=== PATIENT | female | born 1950 | race Caucasian/White ===

== ENCOUNTER 2019-08-19 14:56 | Inpatient (IN) | payer MEDICARE, OTHER ==
[~2019-08-19] VITALS: Ht 167.6 cm; Wt 107.0 kg
[~2019-08-19 14:56] MED LIST: CARISOPRODOL350 MG PO; DICLOFENAC SODI75 MG PO; GABAPENTIN100 MG PO; LOVASTATIN20 MG PO; MORPHINE SULFAT15 M1 PO; NORCO 10-325 T1 EACH PO; SOMA250 MG PO; TRIAMTERENE-HC1 EAC1 PO
--- OUTSIDE RECORDS SUMMARY | 2019-08-19 15:00 | XMS REPORT | Clinical Summary ---
Author Author MICHELE [facility] Address Unknown Phone Unavailable Care Team Providers Care Plug Making Operator Name Role Phone Sharpless PCP Unavailable Allergies No Known Allergies Medications End Date Status Medication Sig Dispensed Refills Start Date Active albuterol (PROVENTIL) 2.5 Take 2.5 mg 0 mg /3 mL (0.083 %) by nebulizer solution nebulization every 6 (six) hours as needed for Wheezing. Active albuterol HFA (VENTOLIN Inhale 1 puff 0 HFA) 90 mcg/actuation by mouth via inhaler inhaler every 6 (six) hours as needed for Wheezing. Active gabapentin (NEURONTIN) Take 300 mg 0 300 MG capsule by mouth 3 (three) times daily. Active lovastatin (MEVACOR) 20 Take 20 mg by 0 MG tablet mouth nightly. Active triamterene-hydrochloroth Take 1 tablet 0 iazide (MAXZIDE) 75-50 mg by mouth per tablet daily. Active TiZANidine (ZANAFLEX) 4 Take 4 mg by 0 MG capsule mouth 3 (three) times daily. Active bisacodyl (DULCOLAX) 5 mg Take 5 mg by 0 EC tablet mouth 2 (two) times daily. Active Problems Problem Noted Date Arthritis of knee 02/06/2016 Status post right knee replacement 02/06/2016 Immunizations Name Dates Previously Given Next Due Influenza High Dose 02/08/2016 Preservative Free IM Social History Date Tobacco Use Types Packs/Day Years Used Quit: 02/05/2008 Former Smoker 0.25 7 Smokeless Tobacco: Never Used Alcohol Use Drinks/Week oz/Week Comments No Sex Assigned at Date Recorded Not on file Industry Job Start Date Occupation Not on file Not on file Not on file Travel End Travel History Travel Start No recent travel history available. Last Filed Vital Signs Not on file Plan of Treatment Not on file Implants Device Identifier Shelf Expiration Date Model / Serial / L ot Implanted Type Area Manufactur er 06/11/2018 6191-1-001 / / [id number] [id number] Bone Smplx Pro Full 40 Cement/Patric Right: Knee MARYCRUZ:ST 6191-1-010 - [id number] ler/Adhesi ROSALIE Implanted: Qty: 2 on 02/06/2016 by Marcella Galo MD 06/07/2020 5515-F-402 / / [id number] Comp Triathlon Ps Fem #4 5515-F-402 Joints Right: Kne e MARYCRUZ:ST - [id number] ROSALIE Implanted: Qty: 1 on 02/06/2016 by Marcella Leiva MD 08/19/2020 5521-[id number] / / VHLIB Baseplt Tri Ts 3 5521-B-300 - Joints Right: Knee MARYCRUZ:ST [id number] ROSALIE Implanted: Qty: 1 on 02/06/2016 by Marcella Leiva MD 08/14/2020 5551-G-320 / / PLWX Patella Tri Asymmetric [id number] Joints Right: Knee MARYCRUZ:ST 5551-G-320 - [id number] ROSALIE Implanted: Qty: 1 on 02/06/2016 by Marcella Leiva MD 01/02/2020 [id number]-309 / / [id number] Insrt Tib #3 9mm 5532-G-309 - Joints Right: Knee MARYCRUZ:ST [id number] ROSALIE Implanted: Qty: 1 on 02/06/2016 by Marcella Leiva MD Results Not on fileafter 08/18/2018 Insurance Payer Benefit Subscriber ID Type Phone Address Plan / Group [facility] x[facility]xx MEDICARE ADV [id number] Advance Directives For more information, please contact: [place] [phone] [facility] [place] [address] Date Inactivated Comments Code Status Date Activated 02/09/2016 2:19 PM Full Code 02/06/2016 6:13 AM This code status was determined by: Patient
[2019-08-19] MEDS ORDERED: SODIUM CHLORIDE 0.9% 1000ML 1,000 ML IV STA (15:14)
[2019-08-19] MEDS ORDERED: ONDANSETRON HCL INJ 2MG/ML 2ML 2 MG/ML VIAL IV STA (15:14)
[2019-08-19] MEDS ORDERED: MORPHINE SULFATE 2 MG/ML SYR 1ML IV STA (15:14)
[2019-08-19] MEDS ORDERED: DIATRIZOATE MEGL/DIATRIZOA SOD 30 ML BTL PO ONE (15:30)
[2019-08-19 16:06] LABS: BASOPHILS # (AUTO) 0.1 (0.0-0.1); BASOPHILS % 1.3 % (0.0-1.0); EOSINOPHILS # (AUTO) 0.3 (0.0-0.4); EOSINOPHILS % 3.5 % (0.0-6.0); HEMATOCRIT 44.7 % (34.2-44.1); HEMOGLOBIN 14.4 g/dL (12.0-16.0); LYMPHOCYTES # (AUTO) 2.6 (1.0-3.2); LYMPHOCYTES % 28.9 % (18.0-39.1); MEAN CORPUSCULAR HEMOGLOBIN 27.3 pg (28-32); MEAN CORPUSCULAR HGB CONC 32.2 g/dL (31-35); MEAN CORPUSCULAR VOLUME 84.8 fL (81-99); MONOCYTES # (AUTO) 0.8 (0.2-0.8); MONOCYTES % 8.4 % (4.4-11.3); NEUTROPHILS # (AUTO) 5.3 (2.1-6.9); NEUTROPHILS % 57.7 % (38.7-80.0); PLATELET COUNT 368 x10e3/uL (140-360); RED BLOOD COUNT 5.27 x10e6/uL (3.6-5.1); RED CELL DISTRIBUTION WIDTH 14.6 % (11.7-14.4)
[2019-08-19 16:16] LABS: INR 0.88; PARTIAL THROMBOPLASTIN TIME 27.5 seconds (23.8-35.5); PROTHROMBIN TIME 12.4 seconds (11.9-14.5)
[2019-08-19 16:24] LABS: ALANINE AMINOTRANSFERASE 13 IU/L (0-55); ALBUMIN 3.8 g/dL (3.5-5.0); ALKALINE PHOSPHATASE 64 IU/L (40-150); AMYLASE 52 U/L (25-125); BLOOD UREA NITROGEN 7 mg/dL (7-26); BUN/CREATININE RATIO 9 (6-25); CALCIUM 10.7 mg/dL (8.4-10.2); CARBON DIOXIDE 30 mmol/L (22-29); CHLORIDE 92 mmol/L (98-107); CREATINE KINASE 68 IU/L (29-168); CREATININE, SERUM 0.75 mg/dL (0.57-1.11); EST GLOMERULAR FILTRATION RATE > 60 ML/MIN (60-); GLUCOSE 96 mg/dL (74-118); LIPASE 5 U/L (8-78); SODIUM 135 mmol/L (136-145)
--- NOTE | 2019-08-19 17:28 | Diagnostic Imaging Report ---
CT Abdomen And Pelvis with Intravenous Contrast INDICATION: Low back and abdominal pain for a week. History of bowel obstruction ^abd pain r/o sbo TECHNIQUE: Thin collimation axial images obtained from the diaphragm to the level of the pubic symphysis following the uneventful administration of 100 cc of low osmolar, nonionic intravenous contrast. Dose reduction techniques used: Automated exposure control, adjustment of the mAs and/or kVp according to patient size, standardized low-dose protocol, and/or iterative reconstruction technique. RADIATION DOSE: Total DLP: 920.43 mGy*cm Estimated effective dose: (DLP x 0.015 x size factor) mSv CTDIvol has been reviewed. It is below the limits set by the Radiation Protocol Committee (RPC). COMPARISON: None. ABDOMEN FINDINGS: Lung Bases: Mild eventration of the right diaphragm with overlying subsegmental atelectasis. Heavy calcifications of the LAD coronary artery. Liver: Normal attenuation. No evidence for mass. Gallbladder: Absent. No biliary ductal dilatation. Pancreas: Diffuse fatty atrophy without mass or ductal dilatation. Spleen: Normal in size. No evidence of mass. Adrenal Glands: No evidence for mass. Kidneys: Right: Excreted contrast in the collecting system. No hydronephrosis. No soft tissue mass. Left: Excreted contrast in the collecting system. No hydronephrosis. No soft tissue mass. Lymph Nodes: No enlarged abdominal or periaortic lymph nodes. Aorta: Normal in diameter with scattered calcifications PELVIS FINDINGS: Bowel: Stomach: Postoperative changes of the stomach. No gastric dilatation. Small Bowel: Small periampullary duodenal diverticulum. Diverticulum in the third portion of the duodenum measures 3 cm. Enteric contrast throughout the small bowel. No mural thickening or dilatation Large Bowel: There is stool mixed with barium in the cecal base. There is circumferential mural thickening of the proximal ascending colon at the ileocecal valve. The adjacent vasculature is mildly engorged. Only a small amount of enteric contrast reaches the hepatic flexure of the colon. The transverse colon and descending colon are collapsed. Appendix: Not visualized. Bladder: Contains a small amount of excreted contrast and is grossly normal in appearance. The uterus is present and atrophic. No adnexal mass. Peritoneum/retroperitoneum: No free fluid or fluid collection. Lymph nodes: Scattered subcentimeter right lower quadrant lymph nodes. Bones: Degenerative changes of the spine most severe at L3-4. Grade 1 retrolisthesis of L3 on L4 without pars defects. Mild degenerative changes of L5-S1. No lytic or blastic lesions. Soft tissues: Unremarkable.. IMPRESSION: 1. Circumferential mural thickening at the ileocecal valve concerning for underlying neoplasm. Recommend further characterization with colonoscopy. This mural thickening results in tract forms stool in the cecal base inferior to the ileocecal valve. 2. Nonspecific subcentimeter right lower quadrant mesenteric lymph nodes. No evidence of intrahepatic mass. 3. No evidence of small bowel obstruction. 4. Postoperative changes of the stomach. Cholecystectomy. Signed by: Dr. Jonnathan Gonzalez MD on 08/19/2019 5:25 PM
[2019-08-19] MEDS ORDERED: POTASSIUM CHLORIDE 20 MEQ TAB CR PO STA (17:38)
[2019-08-19] MEDS: ONDANSETRON HCL INJ 2MG/ML 2ML 2 MG/ML VIAL IV PRN ×2 (17:45→21:35)
[2019-08-19] MEDS: MORPHINE SULFATE INJ 4 MG/ML INJ 1ML IV PRN ×2 (17:45→21:35)
[2019-08-19 17:55] LABS: CLARITY,URINE CLEAR (CLEAR); COLOR,URINE YELLOW (YELLOW); LEUKOCYTE ESTERASE ,URINE NEGATIVE (NEGATIVE); NITRITE,URINE NEGATIVE (NEGATIVE)
[2019-08-19 17:56] LABS: BILIRUBIN,URINE NEGATIVE (NEGATIVE); KETONES,URINE NEGATIVE (NEGATIVE); PROTEIN,URINE DIPSTICK NEGATIVE (NEGATIVE); URINE UROBILINOGEN 0.2 mg/dL (0.2 - 1)
[2019-08-19 18:04] LABS: BACTERIA,URINE RARE /HPF; EPITHELIAL CELLS,URINE FEW /LPF
--- NOTE | 2019-08-19 18:57 | NUR ---
report given to Phil SENA
[2019-08-19] MEDS ORDERED: AMERGE2.5 MG PO (19:33)
[2019-08-19] MEDS ORDERED: GABAPENTIN300 MG PO (19:33)
[2019-08-19] MEDS ORDERED: TRIAMTERENE/HCTZ PO (19:33)
[2019-08-19] MEDS ORDERED: TIZANIDINE HCL4 M1 PO (19:33)
[2019-08-19] MEDS ORDERED: DULOXETINE HCL60 MG PO (19:33)
[2019-08-19] MEDS ORDERED: LOVASTATIN20 MG PO (19:33)
[2019-08-19] MEDS ORDERED: IOPAMIDOL 370 MG/ML 200 ML INFUS..BTL INJ ONE (22:29)
[2019-08-19] MEDS ORDERED: SODIUM CHLORIDE 0.9% 50ML 50 ML ONE (22:29)
--- NOTE | 2019-08-19 23:57 | NUR ---
RECEIVED PATIENT FROM THE ER PER STRETCHER, POSITIONED IN BED, CALL LIGHT IN REACH. WILL CONTINUE TO MONITOR. ASSESSMENT DONE.
[2019-08-20] VITALS (8 sets, daily range): BP systolic 119–143; BP diastolic 61–78
[2019-08-20] MEDS ORDERED: BISACODYL 5 MG TAB EC PO ONE ×3 (01:45→06:10)
[2019-08-20] MEDS: ONDANSETRON HCL INJ 2MG/ML 2ML 2 MG/ML VIAL IV PRN ×4 (02:52→21:11)
[2019-08-20] MEDS: MORPHINE SULFATE INJ 4 MG/ML INJ 1ML IV PRN ×4 (02:52→21:11)
[2019-08-20] MEDS ORDERED: CITRATE OF MAGNESIA 300ML BOTTLE PO ONE (05:00)
[2019-08-20 06:08] LABS: BASOPHILS # (AUTO) 0.1 (0.0-0.1); BASOPHILS % 1.3 % (0.0-1.0); EOSINOPHILS # (AUTO) 0.4 (0.0-0.4); EOSINOPHILS % 3.8 % (0.0-6.0); HEMATOCRIT 46.8 % (34.2-44.1); HEMOGLOBIN 14.7 g/dL (12.0-16.0); LYMPHOCYTES # (AUTO) 4.1 (1.0-3.2); LYMPHOCYTES % 39.5 % (18.0-39.1); MEAN CORPUSCULAR HEMOGLOBIN 27.3 pg (28-32); MEAN CORPUSCULAR HGB CONC 31.4 g/dL (31-35); MONOCYTES # (AUTO) 0.8 (0.2-0.8); MONOCYTES % 7.8 % (4.4-11.3); NEUTROPHILS # (AUTO) 4.9 (2.1-6.9); NEUTROPHILS % 47.4 % (38.7-80.0); PLATELET COUNT 351 x10e3/uL (140-360); RED BLOOD COUNT 5.38 x10e6/uL (3.6-5.1); RED CELL DISTRIBUTION WIDTH 15.2 % (11.7-14.4)
--- NOTE | 2019-08-20 06:14 | NUR ---
DR. CAMRYN CORNEJO MADE ROUNDS AND NEW ORDERS NOTED, PATIENT USING THE BEDSIDE COMMODE AND HAVING BOWEL MOVEMENTS, MOVEMENTS ARE GREENISH LIQUID. WILL CONTINUE TO MONITOR.
[2019-08-20 06:33] LABS: ALANINE AMINOTRANSFERASE 14 IU/L (0-55); ALBUMIN 3.8 g/dL (3.5-5.0); ALKALINE PHOSPHATASE 67 IU/L (40-150); ANION GAP 16.4 mmol/L (8-16); BLOOD UREA NITROGEN 6 mg/dL (7-26); BUN/CREATININE RATIO 8 (6-25); CALCIUM 10.4 mg/dL (8.4-10.2); CARBON DIOXIDE 18 mmol/L (22-29); CHLORIDE 100 mmol/L (98-107); CREATININE, SERUM 0.74 mg/dL (0.57-1.11); EST GLOMERULAR FILTRATION RATE > 60 ML/MIN (60-); GLUCOSE 120 mg/dL (74-118); POTASSIUM 3.4 mmol/L (3.5-5.1); SODIUM 131 mmol/L (136-145)
[2019-08-20] MEDS ORDERED: CITRATE OF MAGNESIA 300ML BOTTLE PO SCH (07:00)
--- NOTE | 2019-08-20 07:33 | NUR ---
REPORT GIVEN TO AM NURSE, PATIENT CONTINUE HAVING GREENISH LOOSE STOOLS, INFORMED NURSE OF PATIENTS FAMILY HISTORY ASSESSMENT NEED TO BE COMPLETED. CALL LIGHT REMAIN IN PATIENTS REACH AND INFORMED TO BE CAREFUL WHEN AMBULATING IN THE ROOM.
[2019-08-20] MEDS ORDERED: FAMOTIDINE 20 MG/2 ML VIAL IV SCH (11:45)
[2019-08-20] MEDS ORDERED: POTASSIUM CHLORIDE 10MEQ/100ML 300 ML IV ONE (11:45)
[2019-08-20] MEDS: DEXTROSE 5%/0.9% SOD CHL 1,000 ML IV SCH (12:03)
[2019-08-20] MEDS ORDERED: MIDAZOLAM HCL 2 MG/2 ML VIAL ONE (13:59)
--- NOTE | 2019-08-20 16:11 | NUR ---
Unable to do 1600 IV/Pain/Fall reviews due to patient being in surgery.
--- NOTE | 2019-08-20 18:29 | NUR ---
Patient went to a colonscopy and had many polyps removed. Dr. Castelan stated that patient would need a small bowel series next but would be done outpatient. Patient is alert and oriented and restarted on her IV potassium and fluids. Patient has no other issues or complaints at this time.
--- NOTE | 2019-08-20 19:24 | Operative Report ---
DATE OF PROCEDURE: 08/20/2019 SURGEON: Julio Valenzuela MD PROCEDURE: Colonoscopy with polypectomy and biopsies. INDICATIONS FOR PROCEDURE: Abdominal pain, nausea, vomiting, and abnormal CAT scan. MEDICATIONS: The patient was done under MAC, please see anesthesiologist's note. PROCEDURE IN DETAIL: With the patient in the left lateral decubitus position, a flexible fiberoptic Olympus colonoscope was inserted into the rectum with ease and advanced all the way to the cecum. The ileocecal valve appeared to be within normal limits. There was a ? diverticulum ? postoperative change noted in the cecum. The ileocecal valve was intubated and the scope was advanced into the terminal ileum. Biopsies were obtained. The scope was then withdrawn back into the colon. Of note, the colon was excessively spastic and irritable and suboptimally visualized. Whatever was visualized the mucosa overlying the ascending colon appeared to be within normal limits. Approximately, 6 mm sessile polyp was removed from the transverse colon per snare electrocautery. Diverticular disease was noted in the distal descending and the sigmoid colon. One polyp was hot biopsied from the sigmoid colon. The scope was then retroflexed into the distal rectum and small internal hemorrhoids were noted, none of which was actively bleeding. The scope was then straightened out, it was subsequently withdrawn, and the patient tolerated the procedure well. IMPRESSION: 1. ? Postoperative changes cecum. 2. Transverse colon polyp, hot snared. 3. Diverticulosis. 4. Sigmoid colon polyp, hot biopsied. 5. Internal hemorrhoids, none actively bleeding. PLAN: Follow up histology. The patient will need a small bowel series. The patient might benefit from a followup colonoscopy in 3 years. Julio Valenzuela MD [facility]/MOD[facility] /[id number] cc: Mikey Gonzalez MD
--- NOTE | 2019-08-20 19:30 | NUR ---
Received patient from day nurse, patient is alert and oriented x 3. patient is on room air. safety and fall precautions maintained as per hospital protocol: bed in lowest position and locked, needed items beside bed, and call foley placed close to patient, patient is currently stable, will continue to monitor.
[2019-08-21] VITALS (7 sets, daily range): BP systolic 125–166; BP diastolic 63–78
[2019-08-21] MEDS: DEXTROSE 5%/0.9% SOD CHL 1,000 ML IV SCH ×2 (05:38→08:09)
[2019-08-21] MEDS: ONDANSETRON HCL INJ 2MG/ML 2ML 2 MG/ML VIAL IV PRN ×5 (05:56→22:27)
[2019-08-21] MEDS: MORPHINE SULFATE INJ 4 MG/ML INJ 1ML IV PRN ×5 (05:56→22:27)
[2019-08-21] MEDS ORDERED: TIZANIDINE HCL 4 MG TAB PO PRN (13:15)
[2019-08-21] MEDS: GABAPENTIN 300 MG CAP PO SCH ×2 (14:33→21:21)
--- NOTE | 2019-08-21 19:00 | NUR ---
RECEIVED PATIENT IN BEDSIDE SHIFT REPORT. PATIENT RESTING IN BED AT THIS TIME. PAIN 09/21, RECENTLY RECEIVED IV PAIN MEDS. NO IV ACCESS AT THIS TIME. WILL ATTEMPT. NO S&S OF DISTRESS NOTED. BED LOCKED IN LOWEST POSITION, SIDE RAILS UPX2, CALL LIGHT IN REACH.
[2019-08-21] MEDS: DULOXETINE HCL 30 MG DELAYED RELEASE PO SCH (21:21)
[2019-08-21] MEDS: SIMVASTATIN 20 MG TAB PO SCH (21:21)
--- NOTE | 2019-08-21 21:57 | NUR ---
NEW IV OBTAINED TO L MUSTAPHA, 22G. RECONNECTED D5NS @ 75ML/HR.
[2019-08-22] VITALS (7 sets, daily range): BP systolic 134–160; BP diastolic 62–77
[2019-08-22] MEDS: MORPHINE SULFATE INJ 4 MG/ML INJ 1ML IV PRN ×5 (02:30→19:25)
[2019-08-22] MEDS: ONDANSETRON HCL INJ 2MG/ML 2ML 2 MG/ML VIAL IV PRN ×5 (02:30→19:25)
[2019-08-22] MEDS: PANTOPRAZOLE 40 MG 10ML VIAL IV SCH ×2 (02:34→14:09)
[2019-08-22] MEDS: DEXTROSE 5%/0.9% SOD CHL 1,000 ML IV SCH ×2 (02:34→07:30)
[2019-08-22 06:59] LABS: ANION GAP 11.1 mmol/L (8-16); BLOOD UREA NITROGEN < 5 mg/dL (7-26); CALCIUM 8.8 mg/dL (8.4-10.2); CARBON DIOXIDE 28 mmol/L (22-29); CHLORIDE 102 mmol/L (98-107); CREATININE, SERUM 0.63 mg/dL (0.57-1.11); EST GLOMERULAR FILTRATION RATE > 60 ML/MIN (60-); GLUCOSE 99 mg/dL (74-118); MAGNESIUM 1.8 MG/DL (1.3-2.1); POTASSIUM 3.1 mmol/L (3.5-5.1); SODIUM 138 mmol/L (136-145)
--- NOTE | 2019-08-22 07:00 | NUR ---
Received report from 7p shift that Dr. Valenzuela saw patient and is advancing her diet from full liquid to GI soft. Patient had a new order for Protonix IV last night and received it. After report patient was assessed and all vitals were WNL. Patient's left hang 22g IV was patent and no redness. Patient's labs were drawn and this technical publications writer noted that the patient's potassium was 3.1 [address] 3.4. [address] Gonzalez was called and he ordered a one time dose of Potassium 40 mEqs. It was given as ordered. Patient has no other issues or complaints at this time. Addendum: 08/22/19 at 0936 by Lara Vasquez RN Dr. Gonzalez ordered for the D5NS to be discontinued. Dr. Gonzalez also ordered for more potassium to be given at 1230. Will follow through.
[2019-08-22 07:02] LABS: BUN/CREATININE RATIO 8 (6-25)
[2019-08-22] MEDS ORDERED: POTASSIUM CHLORIDE 20 MEQ TAB CR PO STA (07:14)
[2019-08-22] MEDS: GABAPENTIN 300 MG CAP PO SCH ×3 (07:30→21:05)
[2019-08-22] MEDS: TRIAMTERENE/HCTZ 37.5-25 MG TAB PO SCH (07:30)
[2019-08-22] MEDS ORDERED: POTASSIUM CHLORIDE 20 MEQ TAB CR PO ONE (12:30)
[2019-08-22] MEDS ORDERED: FUROSEMIDE INJ 10 MG/ML 2 ML VIAL IV ONE (13:00)
[2019-08-22] MEDS: ALBUTEROL SULF 0.083% NEB SOLN 3 ML NEB NEB PRN ×2 (18:20→23:01)
--- NOTE | 2019-08-22 19:00 | NUR ---
RECEIVED PATIENT IN BEDSIDE SHIFT REPORT. PATIENT RESTING IN BED. PAIN 10/21, WILL MEDICATE. NO S&S OF DISTRESS NOTED. L HAND 22G IV ASYMPTOMATIC, INTACT, AND PATENT. BED LOCKED IN LOWEST POSITION, SIDE RAILS UPX2, CALL LIGHT IN REACH.
[2019-08-22] MEDS ORDERED: TEMAZEPAM 7.5 MG CAP PO ONE (21:00)
[2019-08-22] MEDS: DULOXETINE HCL 30 MG DELAYED RELEASE PO SCH (21:04)
[2019-08-22] MEDS: SIMVASTATIN 20 MG TAB PO SCH (21:05)
[2019-08-23] VITALS (7 sets, daily range): BP systolic 125–146; BP diastolic 60–74
[2019-08-23] MEDS: ONDANSETRON HCL INJ 2MG/ML 2ML 2 MG/ML VIAL IV PRN ×4 (02:45→21:16)
[2019-08-23] MEDS: MORPHINE SULFATE INJ 4 MG/ML INJ 1ML IV PRN ×5 (02:45→21:15)
[2019-08-23] MEDS: PANTOPRAZOLE 40 MG 10ML VIAL IV SCH ×2 (02:49→14:00)
--- NOTE | 2019-08-23 07:20 | NUR ---
PATIENT IS AWAKE, ALERT, AND IN STABLE CONDITION WITH NO S/S OF RESPIRATORY DISTRESS. PATIENT C/O BACK PAIN 10/21. PATIENT IS CURRENTLY NPO. CALL LIGHT IS WITHIN REACH, PATIENT INSTRUCTED TO CALL FOR ASSISTANCE NEEDED.
[2019-08-23] MEDS: ALBUTEROL SULF 0.083% NEB SOLN 3 ML NEB NEB PRN ×3 (07:55→23:35)
[2019-08-23] MEDS: GABAPENTIN 300 MG CAP PO SCH ×3 (09:00→21:17)
--- NOTE | 2019-08-23 13:55 | Diagnostic Imaging Report ---
EXAM: SMALL BOWEL SERIES DATE: 08/23/2019 10:30 AM INDICATION: Ileocecal abnormality COMPARISON: CT abdomen/pelvis from 08/19/2019 Fluoroscopy Time: 2.5 min. Reference Air Kerma (Ka, r): 73.9 mGy. TECHNIQUE/FINDINGS: Screen Printing Equipment Setter images demonstrate moderate volume of retained fecal matter which limits evaluation. Contrast material was provided orally without complication. Sequential overhead images were obtained of the abdomen with spot fluoroscopic evaluation of the terminal ileum. Contrast material opacifies entire small bowel. Small bowel transit time is within normal limits with contrast material reaching the colon at 1 hour, 10 minutes. Small bowel mucosa is unremarkable without evidence for filling defect, radiographically evident mucosal abnormality, stricture, obstruction, or extravasation. IMPRESSION: Unremarkable small bowel follow-through. The abnormality noted at the ileocecal valve on the prior CT examination is not appreciated radiographically on this small bowel follow-through examination. Signed by: Dr. Mike Doherty MD on 08/23/2019 1:52 PM
[2019-08-23] MEDS: TRIAMTERENE/HCTZ 37.5-25 MG TAB PO SCH (16:25)
--- NOTE | 2019-08-23 17:19 | NUR ---
PT UP IN BED NO DISTRESS NOTED,PAIN LEVEL 3
--- NOTE | 2019-08-23 19:51 | NUR ---
RECEIVED REPORT FROM 7AM NURSE, PATIENT RESTING IN BED, NO DISTRESS NOTED. CALL LIGHT REMAIN IN REACH.
[2019-08-23] MEDS: DULOXETINE HCL 30 MG DELAYED RELEASE PO SCH (21:17)
[2019-08-23] MEDS: SIMVASTATIN 20 MG TAB PO SCH (21:17)
[2019-08-23] MEDS: HYDROCODONE/APAP 10MG-325MG TAB PO PRN (23:00)
[2019-08-23] MEDS ORDERED: POTASSIUM CHLORIDE 20 MEQ TAB CR PO STA (23:37)
[2019-08-24] VITALS (8 sets, daily range): BP systolic 129–160; BP diastolic 64–95
[2019-08-24] MEDS: PANTOPRAZOLE 40 MG 10ML VIAL IV SCH ×2 (02:00→14:00)
[2019-08-24] MEDS: ONDANSETRON HCL INJ 2MG/ML 2ML 2 MG/ML VIAL IV PRN ×4 (04:10→22:45)
[2019-08-24] MEDS: MORPHINE SULFATE INJ 4 MG/ML INJ 1ML IV PRN ×5 (04:10→22:45)
[2019-08-24 06:58] LABS: ANION GAP 14.5 mmol/L (8-16); BLOOD UREA NITROGEN < 5 mg/dL (7-26); CALCIUM 9.6 mg/dL (8.4-10.2); CARBON DIOXIDE 30 mmol/L (22-29); CHLORIDE 94 mmol/L (98-107); CREATININE, SERUM 0.76 mg/dL (0.57-1.11); EST GLOMERULAR FILTRATION RATE > 60 ML/MIN (60-); GLUCOSE 103 mg/dL (74-118); MAGNESIUM 1.7 MG/DL (1.3-2.1); POTASSIUM 3.5 mmol/L (3.5-5.1); SODIUM 135 mmol/L (136-145)
[2019-08-24 06:59] LABS: BUN/CREATININE RATIO 7 (6-25)
[2019-08-24] MEDS: ALBUTEROL SULF 0.083% NEB SOLN 3 ML NEB NEB PRN ×2 (07:50→13:20)
[2019-08-24] MEDS: TRIAMTERENE/HCTZ 37.5-25 MG TAB PO SCH (08:33)
[2019-08-24] MEDS: GABAPENTIN 300 MG CAP PO SCH ×3 (08:33→20:50)
--- NOTE | 2019-08-24 09:35 | NUR ---
Pt. expressed no spiritual or emotional concerns at this time. Provided hospitality and information n how to reach fabric worker supervisor, if needed. No need to follow at this time. LEDA ASTORGA [facility] Department O: [phone]
--- NOTE | 2019-08-24 14:00 | NUR ---
dr mcdaniel here informed of audible wheezing,orders written.
[2019-08-24] MEDS: HYDROCODONE/APAP 10MG-325MG TAB PO PRN ×2 (14:28→20:50)
[2019-08-24] MEDS ORDERED: EPINEPHRINE 2.25% INH NEBU SOL 0.5 ML VIAL INH SCH (14:35)
--- NOTE | 2019-08-24 17:09 | NUR ---
pt up in bed no distess noted.pain level 3,
[2019-08-24] MEDS: SIMVASTATIN 20 MG TAB PO SCH (20:50)
[2019-08-24] MEDS: MAGNESIUM HYDROXIDE 30 ML UDC PO SCH (20:50)
[2019-08-24] MEDS: DULOXETINE HCL 30 MG DELAYED RELEASE PO SCH (20:50)
[2019-08-24] MEDS: TEMAZEPAM 15 MG CAP PO PRN (20:50)
--- NOTE | 2019-08-24 20:50 | NUR ---
PATIENT RESTING IN BED, NO SIGNS OF DISTRESS NOTED. NASAL CANNULA INTACT AND RUNNING AT 2 LITERS AND PATIENT AWAITING RESPIRATORY THERAPIST FOR BREATHING TREATMENT. PATIENT VOICES PAIN AT A LEVEL OF 7 AND WAS MEDICATED ORDERED. BED IS IN LOWEST POSITION, BOTH SIDE RAILS ARE UP, CALL LIGHT IS WITHIN EASY REACH, WILL CONTINUE TO MONITOR.
--- NOTE | 2019-08-24 21:45 | NUR ---
PATIENT VOICED THAT SHE IS BREATHING A LOT BETTER SINCE HER BREATHING TREATMENT OF EPINEPHRINE. CONTINUING TO MONITOR.
[2019-08-25] VITALS (8 sets, daily range): BP systolic 122–157; BP diastolic 56–86
[2019-08-25] MEDS: HYDROCODONE/APAP 10MG-325MG TAB PO PRN ×4 (02:37→21:34)
[2019-08-25] MEDS: PANTOPRAZOLE 40 MG 10ML VIAL IV SCH ×2 (02:37→14:15)
[2019-08-25] MEDS: ALBUTEROL SULF 0.083% NEB SOLN 3 ML NEB NEB PRN ×5 (02:40→20:00)
--- NOTE | 2019-08-25 07:00 | NUR ---
received bedside report. pt is oob ambulating to bathroom, no s/s of distress, c/o pain. call light within reach and safety measures in place, instructed pt to call RN for help
[2019-08-25] MEDS: ONDANSETRON HCL INJ 2MG/ML 2ML 2 MG/ML VIAL IV PRN ×5 (07:22→23:55)
[2019-08-25] MEDS: MORPHINE SULFATE INJ 4 MG/ML INJ 1ML IV PRN ×5 (07:22→23:55)
[2019-08-25] MEDS: TRIAMTERENE/HCTZ 37.5-25 MG TAB PO SCH (09:12)
[2019-08-25] MEDS: GABAPENTIN 300 MG CAP PO SCH ×3 (09:12→21:22)
--- NOTE | 2019-08-25 09:22 | Diagnostic Imaging Report ---
EXAMINATION: CHEST SINGLE (PORTABLE) INDICATION: Wheezing COMPARISON: None FINDINGS: LINES/TUBES:None LUNGS:The lungs are moderately inflated. No focal consolidation or pulmonary edema. PLEURA:No pleural effusion or pneumothorax. MEDIASTINUM:The cardiomediastinal silhouette appears normal in size and shape. Atherosclerotic calcifications of the thoracic aorta. BONES/SOFT TISSUES:No acute osseous injury. ABDOMEN:No free air under the diaphragm. Oral contrast in the left upper quadrant. IMPRESSION: No focal pneumonia or pulmonary edema. Signed by: Dianelys Graham MD on 08/25/2019 9:09 AM
--- NOTE | 2019-08-25 13:25 | NUR ---
Dr. Karina Amanda called and gave telephone orders for prophylactic abx. stated that surgery will be done on 08/26/2019 in am and he would get the consent at a later time when he talked with the patient.
[2019-08-25] MEDS ORDERED: ERYTHROMYCIN 500 MG TAB PO ONE ×3 (14:00→23:00)
[2019-08-25] MEDS ORDERED: NEOMYCIN SULFATE 500 MG TAB PO ONE ×3 (14:00→23:00)
[2019-08-25] MEDS ORDERED: EPINEPHRINE 2.25% INH NEBU SOL 0.5 ML VIAL INH STA (14:46)
[2019-08-25] MEDS: DOCUSATE SODIUM 100 MG CAP PO SCH (16:17)
--- NOTE | 2019-08-25 16:33 | NUR ---
Nutrition Screen Note RD Recommendation for Physician: - When feasible, ADAT to goal of GI Soft Plan of Care: RD following, monitoring for tolerance and adequacy Nutrition reason for involvement: LOS Primary Diagnose(s): intractable abdominal pain, ileo-cecal lesion PMH: no H&P in meditech Ht: 66 in Wt: 234.13 lb BMI: 37.8 kg/m2 IBW: [address] Assessment: (08/24) 69 YOM admitted for abdominal pain and ileo-cecal valve lesion reguiring polyp removal on 08/19. Pt seem today for LOS. Pt reports good appetite and po intake on full liquids and regular diet. Pt reports good appetite and intake TUBE COATER. Pt on CLD as of this am. Pt denies wt loss and reports she gained 30# 2/2 steroid shot over the past 6 months. Pt denies any N/V/C/D. Pt meal/food preferences obtain and recorded in [facility]. All questions and concerns addressed at time of visit. Chart reviewed. Labs and meds reviewed. Will continue to monitor. Current Diet: Clear liquids Malnutrition Evaluation (08/25/19) The patient does not meet criteria for a specified degree of malnutrition at this time. Will re-evaluate at follow-up as appropriate. Diet Education Needs Assessment: Diet education not indicated. Diet tolerance: tolerating po Nutrition Care Level: low Signed: Juanita Acuna RD, LD, [facility]
--- NOTE | 2019-08-25 19:30 | NUR ---
RECEIVED REPORT FROM PREVIOUS NURSE. CALL LIGHT WITHIN REACH. PATIENT IS IN BED.
[2019-08-25] MEDS: MAGNESIUM HYDROXIDE 30 ML UDC PO SCH (21:22)
[2019-08-25] MEDS: SIMVASTATIN 20 MG TAB PO SCH (21:22)
[2019-08-25] MEDS: DULOXETINE HCL 30 MG DELAYED RELEASE PO SCH (21:22)
[2019-08-25] MEDS: TEMAZEPAM 15 MG CAP PO PRN (21:26)
[2019-08-26] VITALS (9 sets, daily range): BP systolic 113–136; BP diastolic 58–78
--- NOTE | 2019-08-26 00:02 | Consultation ---
DATE OF CONSULTATION: 08/25/2019 Hospital Consultation HISTORY OF PRESENT ILLNESS: I was kindly asked to see this 69-year-old woman for evaluation of possible upper airway obstruction and stridor. The patient has no previous history of laryngeal or vocal abnormalities, but 2 days ago began developing inspiratory and expiratory "wheezing." She was felt to possibly have stridor. She was initially treated with racemic epi and responded well. At the time of examination, she reports being asymptomatic. She specifically denies hoarseness. REVIEW OF SYSTEMS: Otolaryngology review of systems is otherwise unremarkable. PHYSICAL EXAMINATION: HEENT: The right pinna is normal. The right external auditory canal has a moderate amount of cerumen. Tympanic membrane cannot be visualized. The left pinna was normal. Left external auditory canal had moderate amount of cerumen. The left tympanic membrane could not be well visualized. Intranasal examination showed a mild mid nasal septal deviation toward the right. There was minimal edema of the nasal mucosa. Oral cavity examination showed mild candidiasis on the dorsum of the tongue. There was symmetric elevation of the soft palate. She had no significant postnasal drainage. She had no palpable cervical adenopathy. On fiberoptic laryngoscopy, she had normal vocal cord motion. There were no masses. She had minimal edema and erythema of the posterior commissure of the larynx. There was no obstruction. The subglottis was well visualized. There was no evidence of subglottic abnormalities. There was no stridor or wheezing on examination. ASSESSMENT: No evidence of clinically significant laryngeal pathology to account for her symptoms. PLAN: 1. Cleared for surgery from Otolaryngology standpoint. 2. If symptoms persist, then she should be evaluated for possible vocal cord dysfunction. MD MAURICIO Fuller/MODL /[id number]
[2019-08-26] MEDS ORDERED: MAGNESIUM HYDROXIDE 30 ML UDC PO ONE (00:15)
[2019-08-26] MEDS ORDERED: POTASSIUM CHLORIDE 20 MEQ TAB CR PO STA (00:43)
[2019-08-26] MEDS: PANTOPRAZOLE 40 MG 10ML VIAL IV SCH ×2 (01:50→13:57)
[2019-08-26] MEDS: MORPHINE SULFATE INJ 4 MG/ML INJ 1ML IV PRN (05:16)
[2019-08-26] MEDS: ONDANSETRON HCL INJ 2MG/ML 2ML 2 MG/ML VIAL IV PRN ×3 (05:16→20:59)
[2019-08-26] MEDS: ALBUTEROL SULF 0.083% NEB SOLN 3 ML NEB NEB PRN (07:00)
--- NOTE | 2019-08-26 07:00 | NUR ---
received bedside report. pt is alert resting in bed, no s/s of distress. call light within reach and instructed pt to call RN for help. is at the bedside waiting for patient to go back to surgery
--- NOTE | 2019-08-26 07:19 | NUR ---
GAVE BEDSIDE SHIFT REPORT TO RUPERT TIWARI. CALL LIGHT WITHIN REACH. PATIENT IN BED. Addendum: 08/26/19 at 0719 by Caryn James RN AT THE BEDSIDE
--- NOTE | 2019-08-26 07:33 | NUR ---
pt off unit for surgical procedure
[2019-08-26] MEDS ORDERED: HYDROMORPHONE 1MG/1ML INJ ONE (07:51)
[2019-08-26] MEDS ORDERED: SUGAMMADEX SODIUM 200 MG/2 ML VIAL IV ONE (07:51)
[2019-08-26] MEDS: DOCUSATE SODIUM 100 MG CAP PO SCH (08:16)
[2019-08-26] MEDS: TRIAMTERENE/HCTZ 37.5-25 MG TAB PO SCH (08:16)
[2019-08-26] MEDS: GABAPENTIN 300 MG CAP PO SCH (08:16)
[2019-08-26] MEDS: SODIUM CHLORIDE 0.9% 250ML IRRIG IR SCH ×4 (10:30→22:42)
[2019-08-26] MEDS ORDERED: HYDRALAZINE HCL 20 MG/ML VIAL ONE (10:55)
[2019-08-26] MEDS ORDERED: FENTANYL CITRATE/PF 100MCG/2 ML INJ ONE ×2 (11:13→19:48)
[2019-08-26] MEDS ORDERED: ACETAMINOPHEN 1000 MG/100 ML IV PRN (12:00)
--- NOTE | 2019-08-26 12:17 | NUR ---
received patient back from surgery. pt is sleeping, no s/s of distress. left hand PIV is infiltrated, hand is edematous. disconnected iv fluids and will need to start new IV
[2019-08-26] MEDS: SODIUM CHLORIDE 0.9% 1000ML 1,000 ML IV SCH (13:57)
[2019-08-26] MEDS: CEFOXITIN 1GM/ D5W 50ML 50 ML IV SCH ×2 (13:57→21:00)
[2019-08-26] MEDS: HYDROMORPHONE 1MG/1ML INJ IV PRN ×3 (13:58→20:59)
--- NOTE | 2019-08-26 14:34 | Operative Report ---
DATE OF PROCEDURE: 08/26/2019 SURGEON: Arnoldo Amanda MD PREOPERATIVE DIAGNOSIS: Calcified cecal mass. POSTOPERATIVE DIAGNOSIS: Calcified cecal mass, benign by frozen section. OPERATION PERFORMED: Exploratory laparotomy and ileoascending colectomy. MALTED MILK MIXER: Haven NOEL. ANESTHESIA: General endotracheal. COMPLICATIONS: None. ESTIMATED BLOOD LOSS: 100 mL. DESCRIPTION OF PROCEDURE: With the patient lying in bed in the supine position under good general endotracheal anesthesia, the abdomen was prepped with Betadine solution and draped in the usual manner. A midline incision was made and was carried down through the subcutaneous tissue and through the midline fascia. The peritoneum was entered and the intra-abdominal cavity was explored. There were some adhesions of omentum to the anterior abdominal wall from the patient's previous surgeries. All this was cleared up. After this was done, examination immediately revealed a palpable mass at the base of the cecum. This was very hard almost like there was a rock in there. The patient had a previous appendectomy, initial impression was that perhaps this could be some kind of an inverted calcified mucocele, although obviously stool could do the same thing. We decided to go ahead and do a resection to be able to get the mass out. The right colon was then mobilized off the lateral gutter and brought medially. The terminal ileum was then divided with an application of the ERLIN-75 stapler. The mid ascending colon was then divided with an application of the ERLIN-75 stapler and the mesentery was then divided using the EnSeal device. The specimen was sent for frozen section, which came back as benign and what appeared to be some kind of a calcified fecal mass that had become entrapped in the base of the cecum. The anastomosis was then completed with another application of the ERLIN-75 stapler bringing the terminal ileum to the upper ascending colon and the remaining opening was closed with a TA-60 stapler. Gloves and instruments were changed. The anastomosis was then reinforced with 3-0 silk. The abdomen was then copiously irrigated and perfect hemostasis was ascertained. The mesenteric rent was closed with a running suture of 2-0 Vicryl and the abdomen was then closed in layers. The peritoneum was closed with a running suture of #1 Vicryl. The midline fascia was closed with a running suture of #1 PDS. Subcutaneous tissue was approximated with 2-0 Vicryl and the skin was closed with interrupted vertical mattress sutures of 2-0 nylon and clips. A dressing was applied. The sponge, lap, and needle count was correct. The patient tolerated the procedure well and returned to the recovery room in stable condition. MD SAL Brewer/KATHRYN /[id number] MTDShaniqua
[2019-08-26] MEDS ORDERED: CEFOXITIN SOD 1 GM VIAL ONE (18:35)
[2019-08-26] MEDS ORDERED: SUCCINYLCHOLINE CHLORIDE 20 MG/ML 10ML VIAL ONE (18:35)
[2019-08-26] MEDS ORDERED: ONDANSETRON HCL INJ 2MG/ML 2ML 2 MG/ML VIAL ONE (18:35)
[2019-08-26] MEDS ORDERED: LIDOCAINE HCL 2% LOCAL INJ 5 ML SDV VIAL INJ ONE (18:35)
[2019-08-26] MEDS ORDERED: ROCURONIUM BROMIDE 10 MG/ML 5ML VIAL IV ONE (18:35)
[2019-08-26] MEDS ORDERED: PHENYLEPHRINE HCL 1% 10 MG/ML VIAL ONE (18:35)
[2019-08-26] MEDS ORDERED: ACETAMINOPHEN 1000 MG/100 ML IV ONE (18:35)
[2019-08-26] MEDS ORDERED: DEXAMETHASONE SOD PHOS INJ 4 MG/ML VIAL ONE (18:35)
[2019-08-26] MEDS ORDERED: PROPOFOL IV EMULSION 10 MG/ML 20 ML VIAL ONE (18:35)
[2019-08-26] MEDS ORDERED: SEVOFLURANE INHAL SOLN 250 ML PEN BTL ONE (18:35)
[2019-08-26] MEDS ORDERED: KETOROLAC TROMETHAMINE 30 MG/ML VIAL ONE (18:35)
--- NOTE | 2019-08-26 19:29 | NUR ---
RECEIVED REPORT FROM PREVIOUS NURSE. CALL LIGHT WITHIN REACH. PATIENT IN BED. ROUNDING PERFORMED.
[2019-08-26] MEDS ORDERED: MIDAZOLAM HCL 2 MG/2 ML VIAL ONE (19:48)
[2019-08-27] VITALS (8 sets, daily range): BP systolic 131–137; BP diastolic 60–88
[2019-08-27] MEDS: HYDROMORPHONE 1MG/1ML INJ IV PRN ×8 (00:09→23:00)
[2019-08-27] MEDS: SODIUM CHLORIDE 0.9% 250ML IRRIG IR SCH ×5 (02:20→17:30)
[2019-08-27] MEDS: SODIUM CHLORIDE 0.9% 1000ML 1,000 ML IV SCH (02:20)
[2019-08-27] MEDS: PANTOPRAZOLE 40 MG 10ML VIAL IV SCH ×2 (02:20→14:50)
[2019-08-27] MEDS: ONDANSETRON HCL INJ 2MG/ML 2ML 2 MG/ML VIAL IV PRN ×4 (03:46→23:00)
[2019-08-27 06:07] LABS: BASOPHILS % 0.1 % (0.0-1.0); HEMATOCRIT 37.3 % (34.2-44.1); HEMOGLOBIN 11.9 g/dL (12.0-16.0); LYMPHOCYTES # (AUTO) 1.2 (1.0-3.2); LYMPHOCYTES % 8.1 % (18.0-39.1); MEAN CORPUSCULAR HEMOGLOBIN 27.4 pg (28-32); MEAN CORPUSCULAR HGB CONC 31.9 g/dL (31-35); MEAN CORPUSCULAR VOLUME 85.9 fL (81-99); MONOCYTES # (AUTO) 1.1 (0.2-0.8); MONOCYTES % 7.2 % (4.4-11.3); NEUTROPHILS # (AUTO) 12.6 (2.1-6.9); NEUTROPHILS % 84.1 % (38.7-80.0); PLATELET COUNT 354 x10e3/uL (140-360); RED BLOOD COUNT 4.34 x10e6/uL (3.6-5.1); RED CELL DISTRIBUTION WIDTH 15.2 % (11.7-14.4)
[2019-08-27 06:31] LABS: ANION GAP 12.7 mmol/L (8-16); BLOOD UREA NITROGEN 9 mg/dL (7-26); BUN/CREATININE RATIO 13 (6-25); CALCIUM 8.9 mg/dL (8.4-10.2); CARBON DIOXIDE 29 mmol/L (22-29); CHLORIDE 93 mmol/L (98-107); EST GLOMERULAR FILTRATION RATE > 60 ML/MIN (60-); GLUCOSE 119 mg/dL (74-118); POTASSIUM 3.7 mmol/L (3.5-5.1); SODIUM 131 mmol/L (136-145)
--- NOTE | 2019-08-27 07:02 | NUR ---
RECEIVED BEDSIDE SHIFT REPORT FROM OFF GOING NURSE. PATIENT IS RESTING IN BED. NO ACUTE DISTRESS NOTED. CALL LIGHT WITHIN REACH. BED IN THE LOWEST POSITION.
--- NOTE | 2019-08-27 07:30 | NUR ---
GAVE BEDSIDE SHIFT REPORT TO ONCOMING NURSE. CALL LIGHT WITHIN REACH. PATIENT IN BED.
[2019-08-27] MEDS: DEXTROSE 5%/LACTATED RINGERS 1,000 ML IV SCH ×2 (10:30→23:16)
--- NOTE | 2019-08-27 18:15 | NUR ---
PATIENT PULLED NG TUBE OUT BY ACCIDENT. DR. CLARK ROUNDING ON PATIENT. PER MD, LEAVE NG TUBE OUT.
--- NOTE | 2019-08-27 19:11 | NUR ---
BEDSIDE SHIFT REPORT GIVEN TO ONCOMING NURSE. PATIENT IS RESTING IN BED. NO ACUTE DISTRESS NOTED. CALL LIGHT WITHIN REACH. BED IN THE LOWEST POSITION.
[2019-08-28] VITALS (8 sets, daily range): BP systolic 122–153; BP diastolic 58–77
--- NOTE | 2019-08-28 01:01 | NUR ---
PATIENTS IV HAS GONE BAD, MULTIPLE ATTEMPTS TO INSERT IV LINE UNSUCCESSFUL. MD NOTIFIED. RECEIVED ORDER TO HAVE PICC LINE INSERTED DUE TO POOR VENOUS ACCESS.
--- NOTE | 2019-08-28 03:24 | Diagnostic Imaging Report ---
EXAMINATION: CHEST XRAY LINE PLACEMENT INDICATION: ^CHECK PLACEMENT OF PICC LINE COMPARISON: 08/24/2019 FINDINGS: AP view TUBES and LINES: Right upper extremity PICC that terminates in the mid SVC. LUNGS: Lungs are well inflated. Lungs are clear. There is no evidence of pneumonia or pulmonary edema. PLEURA: No pleural effusion or pneumothorax. HEART AND MEDIASTINUM: The cardiomediastinal silhouette is unremarkable. BONES AND SOFT TISSUES: No acute osseous lesion. Soft tissues are unremarkable. UPPER ABDOMEN: No free air under the diaphragm. IMPRESSION: No acute thoracic radiographic abnormality. The right upper extremity PICC terminates in the mid SVC. Signed by: Marty Griffin MD on 08/28/2019 3:21 AM
[2019-08-28] MEDS: DEXTROSE 5%/LACTATED RINGERS 1,000 ML IV SCH ×2 (04:00→11:45)
[2019-08-28] MEDS: HYDROMORPHONE 1MG/1ML INJ IV PRN ×7 (04:25→23:04)
[2019-08-28] MEDS: ONDANSETRON HCL INJ 2MG/ML 2ML 2 MG/ML VIAL IV PRN ×4 (04:25→23:04)
[2019-08-28] MEDS: PANTOPRAZOLE 40 MG 10ML VIAL IV SCH ×2 (04:27→13:35)
[2019-08-28 06:29] LABS: BASOPHILS % 0.1 % (0.0-1.0); HEMATOCRIT 32.8 % (34.2-44.1); HEMOGLOBIN 10.4 g/dL (12.0-16.0); LYMPHOCYTES # (AUTO) 1.7 (1.0-3.2); LYMPHOCYTES % 14.2 % (18.0-39.1); MEAN CORPUSCULAR HEMOGLOBIN 27.7 pg (28-32); MEAN CORPUSCULAR HGB CONC 31.7 g/dL (31-35); MEAN CORPUSCULAR VOLUME 87.5 fL (81-99); MONOCYTES % 8.3 % (4.4-11.3); NEUTROPHILS # (AUTO) 9.3 (2.1-6.9); NEUTROPHILS % 76.9 % (38.7-80.0); PLATELET COUNT 300 x10e3/uL (140-360); RED BLOOD COUNT 3.75 x10e6/uL (3.6-5.1); RED CELL DISTRIBUTION WIDTH 15.8 % (11.7-14.4)
--- NOTE | 2019-08-28 06:39 | NUR ---
PATIENT IS RESTING COMFORTABLY IN THE BED. BED IS IN THE LOWEST POSITION AND CALL LIGHT IS WITHIN REACH.
--- NOTE | 2019-08-28 06:42 | NUR ---
Received bedside shift report from off going nurse. Patient is resting in bed, no s/s of distress noted. Call light within reach. Bed in the lowest position.
[2019-08-28 06:57] LABS: ANION GAP 12.2 mmol/L (8-16); BLOOD UREA NITROGEN 10 mg/dL (7-26); BUN/CREATININE RATIO 14 (6-25); CALCIUM 8.5 mg/dL (8.4-10.2); CARBON DIOXIDE 29 mmol/L (22-29); CHLORIDE 97 mmol/L (98-107); CREATININE, SERUM 0.69 mg/dL (0.57-1.11); EST GLOMERULAR FILTRATION RATE > 60 ML/MIN (60-); GLUCOSE 111 mg/dL (74-118); POTASSIUM 3.2 mmol/L (3.5-5.1); SODIUM 135 mmol/L (136-145)
--- NOTE | 2019-08-28 08:15 | NUR ---
PATIENT VOIDED X 1 A THIS TIME.
[2019-08-28] MEDS ORDERED: BISACODYL 10 MG SUPP PR SCH (09:00)
[2019-08-28] MEDS ORDERED: POTASSIUM CHLORIDE 10MEQ/100ML 300 ML IV ONE (11:00)
[2019-08-28] MEDS ORDERED: ACETAMINOPHEN/CODEINE 300MG - 30MG TAB PO PRN (12:00)
[2019-08-28] MEDS: ALBUTEROL SULF 0.083% NEB SOLN 3 ML NEB NEB PRN (18:50)
--- NOTE | 2019-08-28 19:02 | NUR ---
BEDSIDE SHIFT REPORT GIVEN TO ONCOMING NURSE. PATIENT IS RESTING IN BED. NO ACUTE DISTRESS NOTED. CALL LIGHT WITHIN REACH. BED IN THE LOWEST POSITION.
--- NOTE | 2019-08-28 19:20 | NUR ---
received report from day nurse. patient is resting comfortably in the bed. bed is in the lowest position and call light is within reach. will continue to monitor patient.
[2019-08-29] VITALS (8 sets, daily range): BP systolic 132–146; BP diastolic 74–86
[2019-08-29] MEDS: MELATONIN 3 MG TAB PO SCH ×2 (00:52→20:21)
[2019-08-29] MEDS: HYDROMORPHONE 1MG/1ML INJ IV PRN ×8 (02:04→23:30)
[2019-08-29] MEDS: PANTOPRAZOLE 40 MG 10ML VIAL IV SCH ×2 (02:19→14:00)
[2019-08-29] MEDS: ONDANSETRON HCL INJ 2MG/ML 2ML 2 MG/ML VIAL IV PRN ×3 (05:05→20:22)
[2019-08-29 06:11] LABS: BASOPHILS % 0.3 % (0.0-1.0); EOSINOPHILS % 0.2 % (0.0-6.0); HEMATOCRIT 33.7 % (34.2-44.1); HEMOGLOBIN 10.5 g/dL (12.0-16.0); LYMPHOCYTES # (AUTO) 2.8 (1.0-3.2); LYMPHOCYTES % 22.6 % (18.0-39.1); MEAN CORPUSCULAR HEMOGLOBIN 27.9 pg (28-32); MEAN CORPUSCULAR HGB CONC 31.2 g/dL (31-35); MEAN CORPUSCULAR VOLUME 89.4 fL (81-99); MONOCYTES # (AUTO) 1.4 (0.2-0.8); NEUTROPHILS % 65.2 % (38.7-80.0); PLATELET COUNT 301 x10e3/uL (140-360); RED BLOOD COUNT 3.77 x10e6/uL (3.6-5.1); RED CELL DISTRIBUTION WIDTH 15.7 % (11.7-14.4)
[2019-08-29 06:37] LABS: ANION GAP 14.2 mmol/L (8-16); BLOOD UREA NITROGEN 7 mg/dL (7-26); BUN/CREATININE RATIO 11 (6-25); CALCIUM 9.1 mg/dL (8.4-10.2); CARBON DIOXIDE 26 mmol/L (22-29); CHLORIDE 98 mmol/L (98-107); CREATININE, SERUM 0.66 mg/dL (0.57-1.11); EST GLOMERULAR FILTRATION RATE > 60 ML/MIN (60-); GLUCOSE 82 mg/dL (74-118); POTASSIUM 3.2 mmol/L (3.5-5.1); SODIUM 135 mmol/L (136-145)
--- NOTE | 2019-08-29 06:52 | NUR ---
Received bedside shift report from off going nurse. Patient is resting in bed. No acute distress noted. Call light within reach. Bed in the lowest position.
--- NOTE | 2019-08-29 07:02 | NUR ---
report given to day nurse. patient is resting comfortably in the bed. bed is n the lowest position and call light is within reach.
--- NOTE | 2019-08-29 08:00 | NUR ---
PATIENT DISCONNECTED FROM IV FLUIDS LAST NIGHT PER REQUEST. NOTIFIED PATIENT THAT SHE NEEDS TO BE ON FLUIDS, PATIENT REFUSED AT THIS TIME.
[2019-08-29] MEDS: GABAPENTIN 300 MG CAP PO SCH ×3 (08:07→20:21)
[2019-08-29] MEDS ORDERED: POTASSIUM CHLORIDE 20 MEQ TAB CR PO NR (10:30)
[2019-08-29] MEDS ORDERED: POTASSIUM CHLORIDE 20MEQ/15ML UDC PO NR (10:43)
--- NOTE | 2019-08-29 11:10 | NUR ---
PATIENT STILL REFUSING TO BE CONNECTED TO FLUIDS.
[2019-08-29] MEDS: DEXTROSE 5%/LACTATED RINGERS 1,000 ML IV SCH (12:00)
--- NOTE | 2019-08-29 14:00 | NUR ---
PATIENT CONNECTED BACK TO FLUIDS AT THIS TIME.
[2019-08-29] MEDS: ALBUTEROL SULF 0.083% NEB SOLN 3 ML NEB NEB PRN (18:30)
--- NOTE | 2019-08-29 19:18 | NUR ---
Bedside shift report given to oncoming nurse. Patient is resting in bed. No acute distress noted at this time. Call light within reach. Bed in the lowest position.
[2019-08-30] VITALS (7 sets, daily range): BP systolic 123–149; BP diastolic 71–80
[2019-08-30] MEDS: PANTOPRAZOLE 40 MG 10ML VIAL IV SCH ×2 (02:36→14:34)
[2019-08-30] MEDS: HYDROMORPHONE 1MG/1ML INJ IV PRN ×6 (02:36→20:32)
[2019-08-30] MEDS: ONDANSETRON HCL INJ 2MG/ML 2ML 2 MG/ML VIAL IV PRN ×2 (02:36→08:39)
--- NOTE | 2019-08-30 06:38 | NUR ---
patient is resting comfortably in the bed. no distress noted. bed is in lowest position.
[2019-08-30 06:55] LABS: ANION GAP 12.5 mmol/L (8-16); BLOOD UREA NITROGEN < 5 mg/dL (7-26); CALCIUM 8.9 mg/dL (8.4-10.2); CARBON DIOXIDE 26 mmol/L (22-29); CHLORIDE 99 mmol/L (98-107); CREATININE, SERUM 0.65 mg/dL (0.57-1.11); EST GLOMERULAR FILTRATION RATE > 60 ML/MIN (60-); GLUCOSE 88 mg/dL (74-118); POTASSIUM 3.5 mmol/L (3.5-5.1); SODIUM 134 mmol/L (136-145)
[2019-08-30 06:56] LABS: BUN/CREATININE RATIO 8 (6-25)
[2019-08-30] MEDS: DEXTROSE 5%/LACTATED RINGERS 1,000 ML IV SCH (08:00)
[2019-08-30] MEDS: GABAPENTIN 300 MG CAP PO SCH ×3 (08:51→20:32)
--- NOTE | 2019-08-30 17:52 | NUR ---
patient resting in bed, Ambulated to restroom and hallway with PT, Not in any distress now
--- NOTE | 2019-08-30 18:02 | NUR ---
Discontinuing PT services since patient is Mod I in functional mobility. Thank you. Addendum: 08/30/19 at 1803 by Christopher cao PT Amended: Links added.
--- NOTE | 2019-08-30 19:47 | Progress Note ---
DATE: 08/30/2019 CONSULTANTS: Dr. Gilliam with ENT, Dr. Amanda with Surgery and Dr. Valenzuela with GI. CHIEF COMPLAINT: Abdominal pain, intractable due to ileocecal lesion. SUBJECTIVE: The patient is lying in bed with no acute distress. She reports is tolerating full liquid diet. Pain is tolerable with medication. She denies any chest pain, nausea, or vomiting. PHYSICAL EXAMINATION: VITAL SIGNS: Temperature 98.1, pulse is 98, respirations 20, blood pressure 134/77, pulse ox is 99% on room air. GENERAL: No acute distress. HEENT: Normocephalic, atraumatic. NECK: Supple. CARDIOVASCULAR: Regular rate and rhythm. LUNGS: Clear. ABDOMEN: Soft and tender to touch. Dressing is intact. NEUROLOGIC: Alert, awake, oriented x3. MUSCULOSKELETAL: Moves all extremities. SKIN: Dry. LABORATORY DATA: Sodium 134, BUN is less than 5, creatinine is 0.65. Estimated GFR is greater than 60. Magnesium is 1.9. IMPRESSION: 1. Abdominal pain, status post exploratory laparotomy with . She is tolerating full liquid diet, pain management as needed. 2. Hyponatremia. Stable at 134. 3. Mild leukocytosis, likely reactive due to surgery. She is afebrile. We will continue to monitor. Off antibiotics. We will repeat CBC in a.m. 4. Gastrointestinal and deep vein thrombosis prophylaxis. We will hold off on anticoagulation due to recent surgery. PLAN: To continue full liquids and advance as tolerated per surgical team. Dictated by CHIDI Pat Mikey Gonzalez MD MY/MODL /[id number] Pt seen and examined on 08/30/2019. Agree with the findings and plan as documented by CHIDI Sierra. VIANCAD
[2019-08-30] MEDS: MELATONIN 3 MG TAB PO SCH (20:32)
[2019-08-31] VITALS: BP 137/98
[2019-08-31] MEDS: HYDROMORPHONE 1MG/1ML INJ IV PRN ×6 (00:34→16:32)
[2019-08-31] MEDS: ONDANSETRON HCL INJ 2MG/ML 2ML 2 MG/ML VIAL IV PRN ×2 (01:09→13:24)
[2019-08-31] MEDS: DEXTROSE 5%/LACTATED RINGERS 1,000 ML IV SCH (01:32)
[2019-08-31] MEDS: PANTOPRAZOLE 40 MG 10ML VIAL IV SCH ×2 (02:43→15:54)
[2019-08-31 04:00] VITALS: BP 122/69
[2019-08-31 05:50] LABS: BASOPHILS % 0.2 % (0.0-1.0); EOSINOPHILS # (AUTO) 0.2 (0.0-0.4); EOSINOPHILS % 1.3 % (0.0-6.0); HEMATOCRIT 35.7 % (34.2-44.1); HEMOGLOBIN 11.1 g/dL (12.0-16.0); LYMPHOCYTES # (AUTO) 2.5 (1.0-3.2); LYMPHOCYTES % 20.4 % (18.0-39.1); MEAN CORPUSCULAR HEMOGLOBIN 27.5 pg (28-32); MEAN CORPUSCULAR HGB CONC 31.1 g/dL (31-35); MEAN CORPUSCULAR VOLUME 88.4 fL (81-99); MONOCYTES # (AUTO) 1.5 (0.2-0.8); MONOCYTES % 12.2 % (4.4-11.3); NEUTROPHILS # (AUTO) 8.1 (2.1-6.9); NEUTROPHILS % 65.5 % (38.7-80.0); PLATELET COUNT 232 x10e3/uL (140-360); RED BLOOD COUNT 4.04 x10e6/uL (3.6-5.1); RED CELL DISTRIBUTION WIDTH 15.6 % (11.7-14.4)
--- NOTE | 2019-08-31 07:00 | NUR ---
REPORT GIVEN TO [facility] NURSE. WILSON. NO SIGNS OF IV INFILTRATION. RESTING IN BED. BED LOCKED AND IN LOW POSITION. Addendum: 08/31/19 at 07 by Amina Burton RN PLEASE INCLUDE BED ALARM ACTIVATED Addendum: 08/31/19 at 0705 by Amina Burton RN PLEASE INCLUDE CALL LIGHT WITHIN REACH
--- NOTE | 2019-08-31 07:02 | NUR ---
REPORT GIVEN TO [facility] NURSE. AAOX3. NO SIGNS OF IV INFILTRATION. RESTING IN BED. BED LOCKED AND IN LOW POSITION.
[2019-08-31 08:10] VITALS: BP 141/80
[2019-08-31] MEDS: GABAPENTIN 300 MG CAP PO SCH ×2 (08:41→15:54)
[2019-08-31 08:54] VITALS: BP 141/80
[2019-08-31 12:11] VITALS: BP 140/76
[2019-08-31 15:51] VITALS: BP 146/83
--- NOTE | 2019-08-31 16:19 | Discharge Summary ---
PRIMARY CARE DOCTOR: Dr. Collins Doshi. FINAL DIAGNOSIS: Ileocecal fecal leak. SECONDARY DIAGNOSES: 1. Hyponatremia, resolved. 2. Hypertension. CONSULTANTS: 1. Dr. Valenzuela, GI. 2. Dr. Arnoldo Amanda, Surgery. PROCEDURES/STUDIES PERFORMED: 1. CT of the abdomen and pelvis, small-bowel series. 2. PICC line placement. 3. Ileocecal resection. HISTORY: Per [facility] HOSPITAL COURSE: The patient was admitted with abdominal pain and vomiting. CT shows ileocecal circumferential thickening. Colonoscopy was abnormal with no obvious mass. Small bowel series was normal. Subsequently, patient underwent ileocecal resection. Pathology turned out to be fecal leak. The patient admits very minimal pain tolerance, was on IV Dilaudid after surgery. According to the patient, the patient will go home on p.o. narcotics per Dr. Arnoldo Amanda. I have updated her primary care doctor about this hospitalization. I have also updated the at the bedside as well. The patient was seen and examined today. It took 32 minutes total to discharge this patient. The patient currently is tolerating p.o. CONDITION ON DISCHARGE: Improved. DISCHARGE MEDICATIONS: Please see medication reconciliation form. Yiching MD DELON Rodriguez/KATHRYN /[id number] cc: [facility]
[2019-08-31] MEDS ORDERED: NORCO 7.5-3251 EACH PO (18:11)
--- NOTE | 2019-08-31 18:36 | NUR ---
Patient discharged home, prescription recvd from Dr Karina Amanda, PICC line removed and pressure dressing applied, abdominal dressing intact with abd binder, not in any distress, discharge instruction given, here to pick her, transported via wheelchair with face mask
== END 2019-08-31 18:35 | disposition home or self-care (01) | DRG 330 ==
LOC: ER 14:56 → ERHOLD 17:41 → MED/SURG3 23:46
PROVIDERS: ADMIT Internal Medicine; ATTEND Internal Medicine
PROC: 0DBL8ZX Excision of Transverse Colon, Via Natural or Artificial Opening Endoscopic, Diagnostic (ICD-10-PCS; 2019-08-20)
PROC: 0DBN8ZX Excision of Sigmoid Colon, Via Natural or Artificial Opening Endoscopic, Diagnostic (ICD-10-PCS; principal; 2019-08-20 11:00)
PROC: 0DBK0ZZ Excision of Ascending Colon, Open Approach (ICD-10-PCS; 2019-08-26)
PROC: 0DBB0ZZ Excision of Ileum, Open Approach (ICD-10-PCS; 2019-08-26)
PROC: 02HV33Z Insertion of Infusion Device into Superior Vena Cava, Percutaneous Approach (ICD-10-PCS; 2019-08-28)
PROC: B548ZZA Ultrasonography of Superior Vena Cava, Guidance (ICD-10-PCS; 2019-08-28)
DX: K56.41 Fecal impaction (principal); E87.1 Hypo-osmolality and hyponatremia; K63.89 Other specified diseases of intestine; E87.6 Hypokalemia; I10 Essential (primary) hypertension; E78.5 Hyperlipidemia, unspecified; Z90.49 Acquired absence of other specified parts of digestive tract; K63.5 Polyp of colon; K57.30 Diverticulosis of large intestine without perforation or abscess without bleeding; K64.8 Other hemorrhoids; E87.70 Fluid overload, unspecified; D12.0 Benign neoplasm of cecum; R06.1 Stridor
CPT/HCPCS: 36415; 36569; 45380; 45385; 71045; 74177; 74250; 80048; 80053; 81001; 82150; 82550; 82553; 83690; 83735; 84484; 85025; 85610; 85730; 87086; 87635; 88305; 88307; 88309; 88329; 94640; 96361; 97139; 99284; J0330; J0360; J0694; J1100; J1170; J1885; J1940; J2001; J2250; J2270; J2370; J2405; J3010; J3480; J7030; J7042; Q9967

== ENCOUNTER 2020-11-28 13:04 | Inpatient (IN) | payer MEDICARE ==
[~2020-11-28] VITALS: Ht 167.6 cm; Wt 107.0 kg
[~2020-11-28 13:04] MED LIST changes: +AMERGE2.5 MG PO; +DULOXETINE HCL60 MG PO; +GABAPENTIN300 MG PO; +NORCO 7.5-3251 EACH PO; +TIZANIDINE HCL4 M1 PO; +TRIAMTERENE/HCTZ PO
[2020-11-28] MEDS ORDERED: KETOROLAC TROMETHAMINE 30 MG/ML VIAL IV STA (13:51)
[2020-11-28 13:55] LABS: BASOPHILS # (AUTO) 0.1 (0.0-0.1); BASOPHILS % 0.5 % (0.0-1.0); EOSINOPHILS # (AUTO) 0.1 (0.0-0.4); EOSINOPHILS % 0.6 % (0.0-6.0); HEMATOCRIT 43.6 % (34.2-44.1); HEMOGLOBIN 14.3 g/dL (12.0-16.0); LYMPHOCYTES # (AUTO) 2.6 (1.0-3.2); MEAN CORPUSCULAR HGB CONC 32.8 g/dL (31-35); MEAN CORPUSCULAR VOLUME 85.3 fL (81-99); MONOCYTES # (AUTO) 1.2 (0.2-0.8); MONOCYTES % 7.5 % (4.4-11.3); NEUTROPHILS # (AUTO) 12.1 (2.1-6.9); NEUTROPHILS % 74.9 % (38.7-80.0); PLATELET COUNT 376 x10e3/uL (140-360); RED BLOOD COUNT 5.11 x10e6/uL (3.6-5.1); RED CELL DISTRIBUTION WIDTH 13.9 % (11.7-14.4)
[2020-11-28 14:24] LABS: ALBUMIN 3.1 g/dL (3.5-5.0); ALBUMIN/GLOBULIN RATIO 0.6 (0.8-2.0); ANION GAP 17.7 mmol/L (8-16); CALCIUM 9.7 mg/dL (8.4-10.2); CREATININE, SERUM 0.86 mg/dL (0.57-1.11)
[2020-11-28 14:26] LABS: POTASSIUM 2.7 mmol/L (3.5-5.1)
[2020-11-28] MEDS ORDERED: ONDANSETRON HCL INJ 2MG/ML 2ML 2 MG/ML VIAL IV PRN (14:45)
[2020-11-28] MEDS ORDERED: SODIUM CHLORIDE 0.9% 1000ML 1,000 ML IV SCH (14:45)
[2020-11-28] MEDS ORDERED: MORPHINE SULFATE INJ 2 MG/ML SYR IV PRN (14:45)
[2020-11-28] MEDS ORDERED: POTASSIUM CHLORIDE 20MEQ/100ML 200 ML IV ONE (14:45)
[2020-11-28] MEDS ORDERED: POTASSIUM CHLORIDE 20 MEQ TAB CR PO ONE (15:00)
[2020-11-28] MEDS ORDERED: LACTATED RINGER'S 1,000 ML INJ ONE (15:15)
[2020-11-28 16:10] VITALS: BP 137/100
[2020-11-28] MEDS ORDERED: POTASSIUM CHLORIDE 20 MEQ TAB CR PO NR ×2 (16:15→16:30)
[2020-11-28 16:30] VITALS: BP 137/100
[2020-11-28] MEDS: HYDROMORPHONE 1MG/1ML INJ IV PRN ×3 (17:04→23:11)
[2020-11-28] MEDS: ENOXAPARIN SOD INJ 40 MG/0.4 ML SYR SC SCH (18:16)
[2020-11-28 20:22] VITALS: BP 156/100
[2020-11-28] MEDS ORDERED: METOPROLOL TARTRATE INJ 1 MG/ML VIAL IV PRN (20:45)
[2020-11-28] MEDS ORDERED: HYDRALAZINE HCL 20 MG/ML VIAL IV PRN (20:45)
[2020-11-28 21:00] VITALS: BP 156/100
[2020-11-28] MEDS: FAMOTIDINE 20 MG/2 ML VIAL IV SCH (21:04)
[2020-11-28] MEDS: LACTATED RINGER'S 1,000 ML INJ SCH (21:04)
[2020-11-29] VITALS (7 sets, daily range): BP systolic 116–174; BP diastolic 76–113
[2020-11-29] MEDS: HYDROMORPHONE 1MG/1ML INJ IV PRN ×7 (02:06→20:40)
[2020-11-29 04:53] LABS: BASOPHILS # (AUTO) 0.1 (0.0-0.1); BASOPHILS % 0.7 % (0.0-1.0); EOSINOPHILS # (AUTO) 0.2 (0.0-0.4); EOSINOPHILS % 1.7 % (0.0-6.0); HEMATOCRIT 39.7 % (34.2-44.1); HEMOGLOBIN 13.1 g/dL (12.0-16.0); LYMPHOCYTES # (AUTO) 3.6 (1.0-3.2); LYMPHOCYTES % 24.8 % (18.0-39.1); MEAN CORPUSCULAR HEMOGLOBIN 28.2 pg (28-32); MEAN CORPUSCULAR VOLUME 85.6 fL (81-99); MONOCYTES # (AUTO) 1.4 (0.2-0.8); NEUTROPHILS % 62.4 % (38.7-80.0); PLATELET COUNT 332 x10e3/uL (140-360); RED BLOOD COUNT 4.64 x10e6/uL (3.6-5.1); RED CELL DISTRIBUTION WIDTH 14.1 % (11.7-14.4)
[2020-11-29 05:36] LABS: ANION GAP 16.9 mmol/L (8-16); CALCIUM 9.6 mg/dL (8.4-10.2); CREATININE, SERUM 0.74 mg/dL (0.57-1.11); MAGNESIUM 1.4 MG/DL (1.3-2.1); PHOSPHORUS 2.4 MG/DL (2.3-4.7); POTASSIUM 3.9 mmol/L (3.5-5.1)
[2020-11-29] MEDS: LACTATED RINGER'S 1,000 ML INJ SCH (06:45)
[2020-11-29] MEDS: FAMOTIDINE 20 MG/2 ML VIAL IV SCH ×2 (08:26→20:53)
[2020-11-29] MEDS ORDERED: TIZANIDINE HCL 4 MG TAB PO PRN (15:00)
[2020-11-29] MEDS ORDERED: HYDROCODONE/APAP 7.5MG-325MG 1 EA TAB PO PRN (15:00)
[2020-11-29] MEDS: ENOXAPARIN SOD INJ 40 MG/0.4 ML SYR SC SCH (17:39)
[2020-11-29] MEDS: SODIUM CHLORIDE 0.9% 1000ML 1,000 ML IV SCH ×2 (17:39→20:53)
[2020-11-29] MEDS ORDERED: HYDROMORPHONE 1MG/1ML INJ IV SCH (22:30)
[2020-11-30] VITALS: BP 164/88
[2020-11-30] MEDS: HYDROMORPHONE 1MG/1ML INJ IV PRN ×3 (01:30→07:55)
[2020-11-30 04:00] VITALS: BP 143/95
[2020-11-30 04:44] LABS: BASOPHILS # (AUTO) 0.1 (0.0-0.1); BASOPHILS % 0.8 % (0.0-1.0); EOSINOPHILS # (AUTO) 0.3 (0.0-0.4); EOSINOPHILS % 3.8 % (0.0-6.0); HEMATOCRIT 37.8 % (34.2-44.1); HEMOGLOBIN 12.2 g/dL (12.0-16.0); LYMPHOCYTES # (AUTO) 2.4 (1.0-3.2); LYMPHOCYTES % 28.6 % (18.0-39.1); MEAN CORPUSCULAR HEMOGLOBIN 28.1 pg (28-32); MEAN CORPUSCULAR HGB CONC 32.3 g/dL (31-35); MEAN CORPUSCULAR VOLUME 87.1 fL (81-99); NEUTROPHILS # (AUTO) 4.5 (2.1-6.9); NEUTROPHILS % 54.4 % (38.7-80.0); PLATELET COUNT 327 x10e3/uL (140-360); RED BLOOD COUNT 4.34 x10e6/uL (3.6-5.1); RED CELL DISTRIBUTION WIDTH 14.1 % (11.7-14.4)
[2020-11-30] MEDS: SODIUM CHLORIDE 0.9% 1000ML 1,000 ML IV SCH (05:00)
[2020-11-30 05:24] LABS: ALANINE AMINOTRANSFERASE 24 IU/L (0-55); ALBUMIN 2.4 g/dL (3.5-5.0); ALBUMIN/GLOBULIN RATIO 0.6 (0.8-2.0); ALKALINE PHOSPHATASE 80 IU/L (40-150); ANION GAP 15.9 mmol/L (8-16); CALCIUM 8.6 mg/dL (8.4-10.2); CARBON DIOXIDE 26 mmol/L (22-29); CHLORIDE 92 mmol/L (98-107); GLUCOSE 95 mg/dL (74-118); SODIUM 131 mmol/L (136-145)
[2020-11-30 06:08] LABS: POTASSIUM 2.9 mmol/L (3.5-5.1)
[2020-11-30 06:18] LABS: BLOOD UREA NITROGEN < 5 mg/dL (7-26); EST GLOMERULAR FILTRATION RATE 99 ML/MIN (60-)
[2020-11-30 06:22] LABS: BUN/CREATININE RATIO 8 (6-25)
[2020-11-30] MEDS ORDERED: POTASSIUM CHLORIDE 20MEQ/100ML 200 ML IV ONE (07:00)
[2020-11-30] MEDS ORDERED: POTASSIUM CHLORIDE 10MEQ EA PO ONE (07:00)
[2020-11-30] MEDS: FAMOTIDINE 20 MG/2 ML VIAL IV SCH (07:55)
[2020-11-30 08:27] VITALS: BP 146/107
[2020-11-30 08:52] VITALS: BP 146/107
[2020-11-30 11:15] VITALS: BP 145/79
[2020-11-30 15:09] VITALS: BP 147/96
== END 2020-11-30 18:41 | disposition home or self-care (01) | DRG 177 ==
LOC: ER 13:59 → ERHOLD 14:39 → IMCU 15:22 → OBSVTOIN 11-29 08:41
PROVIDERS: ADMIT Internal Medicine; ATTEND Internal Medicine
PROC: 8E0ZXY6 Isolation (ICD-10-PCS; principal; 2020-11-29)
DX: U07.1 COVID-19 (principal); K85.90 Acute pancreatitis without necrosis or infection, unspecified; K85.00 Idiopathic acute pancreatitis without necrosis or infection; E87.1 Hypo-osmolality and hyponatremia; E87.6 Hypokalemia; M54.5 Low back pain; G89.4 Chronic pain syndrome
CPT/HCPCS: 36415; 71045; 71250; 74176; 80048; 80053; 83690; 83735; 84100; 84132; 84478; 84484; 85025; 93005; 99251; 99284; G0378; J1170; J1650; J1885; J2405; J3480; J7030; J7121; U0002

== ENCOUNTER 2022-05-23 22:36 | Emergency (ER) | payer MEDICARE ==
[~2022-05-23] VITALS: Ht 320 cm; Wt 107.0 kg
[2022-05-23] MEDS ORDERED: ONDANSETRON HCL INJ 2MG/ML 2ML 2 MG/ML VIAL IV STA (22:42)
[2022-05-23] MEDS ORDERED: SODIUM CHLORIDE 0.9% 1000ML 1,000 ML IV ONE (22:45)
[2022-05-23] MEDS ORDERED: DICYCLOMINE HCL 20 MG/2 ML VIAL IM ONE (22:45)
[2022-05-23 23:08] LABS: BASOPHILS # (AUTO) 0.1 (0.0-0.1); BASOPHILS % 0.5 % (0.0-1.0); EOSINOPHILS # (AUTO) 0.1 (0.0-0.4); EOSINOPHILS % 0.6 % (0.0-6.0); HEMATOCRIT 47.4 % (34.2-44.1); HEMOGLOBIN 15.1 g/dL (12.0-16.0); LYMPHOCYTES # (AUTO) 2.7 (1.0-3.2); LYMPHOCYTES % 26.1 % (18.0-39.1); MEAN CORPUSCULAR HEMOGLOBIN 30.6 pg (28-32); MEAN CORPUSCULAR HGB CONC 31.9 g/dL (31-35); MEAN CORPUSCULAR VOLUME 96.1 fL (81-99); MONOCYTES # (AUTO) 0.8 (0.2-0.8); MONOCYTES % 7.3 % (4.4-11.3); NEUTROPHILS # (AUTO) 6.8 (2.1-6.9); NEUTROPHILS % 65.2 % (38.7-80.0); PLATELET COUNT 392 x10e3/uL (140-360); RED BLOOD COUNT 4.93 x10e6/uL (3.6-5.1); RED CELL DISTRIBUTION WIDTH 13.8 % (11.7-14.4)
[2022-05-23 23:22] LABS: ALBUMIN 3.6 g/dL (3.5-5.0); ALBUMIN/GLOBULIN RATIO 0.9 (0.8-2.0); ANION GAP 15.6 mmol/L (8-16); CREATININE, SERUM 0.59 mg/dL (0.57-1.11)
[2022-05-23 23:23] LABS: CALCIUM 10.5 mg/dL (8.4-10.2); POTASSIUM 2.6 mmol/L (3.5-5.1)
[2022-05-23] MEDS ORDERED: POTASSIUM CHLORIDE 20 MEQ TAB CR PO STA (23:23)
[2022-05-23 23:29] LABS: CLARITY,URINE CLOUDY (CLEAR); COLOR,URINE YELLOW (YELLOW)
[2022-05-23 23:30] LABS: KETONES,URINE 2+ (NEGATIVE); LEUKOCYTE ESTERASE ,URINE NEGATIVE (NEGATIVE); NITRITE,URINE NEGATIVE (NEGATIVE); PROTEIN,URINE DIPSTICK 2+ (NEGATIVE); URINE UROBILINOGEN 1 mg/dL (0.2 - 1)
[2022-05-23] MEDS ORDERED: POTASSIUM CHLORIDE 20MEQ/100ML 200 ML IV ONE (23:30)
[2022-05-23 23:37] LABS: AMORPHOUS SEDIMENT,URINE MANY (FEW); BACTERIA,URINE MANY /HPF; EPITHELIAL CELLS,URINE FEW /LPF; RBC,URINE 0-5 /HPF (0-5); WBC,URINE (MAN) 0-5 /HPF (0-5)
[2022-05-23] MEDS ORDERED: POTASSIUM CHLORIDE 20 MEQ TAB CR PO ONE (23:43)
[2022-05-23] MEDS ORDERED: POTASSIUM CHLORIDE 20MEQ/100ML 100 ML ONE (23:44)
[2022-05-24] MEDS ORDERED: SODIUM CHLORIDE 0.9% 1000ML 1,000 ML IV ONE (00:15)
[2022-05-24] MEDS ORDERED: SODIUM CHLORIDE 0.9% 1000ML 1,000 ML ONE (00:30)
[2022-05-24] MEDS ORDERED: ONDANSETRON HCL INJ 2MG/ML 2ML 2 MG/ML VIAL IV STA (02:34)
[2022-05-24] MEDS ORDERED: SODIUM CHLORIDE 0.9% 1000ML 500 ML IV ONE (02:45)
[2022-05-24] MEDS ORDERED: ONDANSETRON HCL INJ 2MG/ML 2ML 2 MG/ML VIAL ONE (02:50)
[2022-05-24 03:08] VITALS: BP 149/91
[2022-05-24] MEDS ORDERED: ONDANSETRON ODT4 MG PO (03:44)
== END 2022-05-24 03:15 | disposition home or self-care (01) ==
LOC: ER 22:40
DX: R11.2 Nausea with vomiting, unspecified (principal); E87.6 Hypokalemia; R19.7 Diarrhea, unspecified; I10 Essential (primary) hypertension; E78.5 Hyperlipidemia, unspecified; E78.00 Pure hypercholesterolemia, unspecified; M54.9 Dorsalgia, unspecified; G89.29 Other chronic pain; Z98.84 Bariatric surgery status
CPT/HCPCS: 36415; 80053; 81001; 83690; 85025; 99284; J0500; J2405 ×2; J3480; J7030 ×2

== ENCOUNTER 2022-05-27 11:22 | Inpatient (IN) | payer MEDICARE, OTHER ==
[~2022-05-27] VITALS: Ht 165.1 cm; Wt 107.0 kg
[~2022-05-27 11:22] MED LIST changes: +FENTANYL CITRATE/PF 100MCG/2 ML INJ ONE; +ONDANSETRON ODT4 MG PO
[2022-05-27 12:21] LABS: BASOPHILS # (AUTO) 0.1 (0.0-0.1); BASOPHILS % 0.5 % (0.0-1.0); EOSINOPHILS % 0.1 % (0.0-6.0); HEMATOCRIT 55.6 % (34.2-44.1); LYMPHOCYTES # (AUTO) 2.5 (1.0-3.2); LYMPHOCYTES % 18.4 % (18.0-39.1); MEAN CORPUSCULAR HEMOGLOBIN 30.7 pg (28-32); MEAN CORPUSCULAR HGB CONC 32.4 g/dL (31-35); MEAN CORPUSCULAR VOLUME 94.7 fL (81-99); MONOCYTES # (AUTO) 1.1 (0.2-0.8); MONOCYTES % 8.4 % (4.4-11.3); NEUTROPHILS # (AUTO) 9.8 (2.1-6.9); NEUTROPHILS % 72.2 % (38.7-80.0); PLATELET COUNT 429 x10e3/uL (140-360); RED BLOOD COUNT 5.87 x10e6/uL (3.6-5.1); RED CELL DISTRIBUTION WIDTH 13.8 % (11.7-14.4)
[2022-05-27] MEDS ORDERED: HALOPERIDOL LACTATE 5 MG/ML VIAL IV ONE (12:30)
[2022-05-27] MEDS ORDERED: LACTATED RINGER'S 1,000 ML INJ ONE (12:45)
[2022-05-27] MEDS ORDERED: HYDROCODONE/APAP 5MG-325MG TAB PO ONE (13:30)
[2022-05-27 14:56] LABS: ALBUMIN 4.2 g/dL (3.5-5.0); ALBUMIN/GLOBULIN RATIO 0.7 (0.8-2.0); ANION GAP 30.3 mmol/L (8-16); CALCIUM 11.1 mg/dL (8.4-10.2); CREATININE, SERUM 1.24 mg/dL (0.57-1.11); POTASSIUM 4.3 mmol/L (3.5-5.1)
[2022-05-27] MEDS ORDERED: PROMETHAZINE 12.5MG/ NACL 0.9% 12.5 MG/50 ML BAG IV ONE (15:15)
[2022-05-27] MEDS ORDERED: ONDANSETRON HCL INJ 2MG/ML 2ML 2 MG/ML VIAL IV PRN (16:30)
[2022-05-27 17:45] VITALS: BP 144/93
[2022-05-27 18:07] VITALS: BP 144/93
[2022-05-27] MEDS ORDERED: Morphine 2mg Syringe 2 MG/ML SYR IV PRN (18:15)
[2022-05-27] MEDS: SODIUM CHLORIDE 0.9% 1000ML 1,000 ML IV SCH (18:49)
[2022-05-27] MEDS ORDERED: HYDRALAZINE HCL 20 MG/ML VIAL IV PRN (19:45)
[2022-05-27 20:00] VITALS: BP 143/89
[2022-05-27] MEDS ORDERED: FAMOTIDINE 20 MG/2 ML VIAL IV SCH (20:00)
[2022-05-27] MEDS: HYDROMORPHONE 1MG/1ML INJ IV PRN (21:36)
[2022-05-28] VITALS (7 sets, daily range): BP systolic 125–175; BP diastolic 87–99
[2022-05-28 00:14] LABS: AMYLASE 57 U/L (25-125); LIPASE 16 U/L (8-78)
[2022-05-28] MEDS: MELATONIN 3 MG TAB PO SCH ×2 (00:15→22:31)
[2022-05-28] MEDS: PROMETHAZINE 12.5MG/ NACL 0.9% 12.5 MG/50 ML BAG IV PRN ×3 (00:19→19:50)
[2022-05-28] MEDS: SODIUM CHLORIDE 0.9% 1000ML 1,000 ML IV SCH ×3 (00:22→16:38)
[2022-05-28] MEDS: HYDROMORPHONE 1MG/1ML INJ IV PRN ×5 (01:22→19:50)
[2022-05-28 01:37] LABS: CLARITY,URINE CLOUDY (CLEAR); COLOR,URINE AMBER (YELLOW); KETONES,URINE 2+ (NEGATIVE); LEUKOCYTE ESTERASE ,URINE NEGATIVE (NEGATIVE); NITRITE,URINE NEGATIVE (NEGATIVE); PROTEIN,URINE DIPSTICK 2+ (NEGATIVE); URINE UROBILINOGEN 1 mg/dL (0.2 - 1)
[2022-05-28 01:43] LABS: AMORPHOUS SEDIMENT,URINE FEW (FEW); BACTERIA,URINE MODERATE /HPF; EPITHELIAL CELLS,URINE MODERATE /LPF; WBC,URINE (MAN) 0-5 /HPF (0-5)
[2022-05-28 06:11] LABS: BASOPHILS # (AUTO) 0.1 (0.0-0.1); BASOPHILS % 0.5 % (0.0-1.0); EOSINOPHILS % 0.1 % (0.0-6.0); HEMOGLOBIN 15.6 g/dL (12.0-16.0); LYMPHOCYTES # (AUTO) 2.1 (1.0-3.2); LYMPHOCYTES % 14.4 % (18.0-39.1); MEAN CORPUSCULAR HEMOGLOBIN 31.6 pg (28-32); MEAN CORPUSCULAR HGB CONC 34.7 g/dL (31-35); MEAN CORPUSCULAR VOLUME 91.3 fL (81-99); MONOCYTES # (AUTO) 1.5 (0.2-0.8); MONOCYTES % 10.2 % (4.4-11.3); NEUTROPHILS # (AUTO) 10.8 (2.1-6.9); NEUTROPHILS % 74.3 % (38.7-80.0); PLATELET COUNT 380 x10e3/uL (140-360); RED BLOOD COUNT 4.93 x10e6/uL (3.6-5.1); RED CELL DISTRIBUTION WIDTH 14.2 % (11.7-14.4)
[2022-05-28 06:21] LABS: ANION GAP 22.6 mmol/L (8-16); CALCIUM 9.7 mg/dL (8.4-10.2); CREATININE, SERUM 1.09 mg/dL (0.57-1.11)
[2022-05-28 06:36] LABS: POTASSIUM 2.6 mmol/L (3.5-5.1)
[2022-05-28] MEDS ORDERED: POTASSIUM CHLORIDE 20MEQ/100ML 100 ML IV ONE ×4 (07:00→13:00)
[2022-05-28] MEDS ORDERED: CLONIDINE HCL 0.1 MG TAB PO PRN (10:30)
[2022-05-28] MEDS ORDERED: ACETAMINOPHEN 325 MG TAB PO PRN (10:30)
[2022-05-28] MEDS ORDERED: LIDOCAINE HCL 2% LOCAL INJ 5 ML SDV VIAL INJ ONE (12:53)
[2022-05-28] MEDS ORDERED: PROPOFOL IV EMULSION 10 MG/ML 20 ML VIAL ONE (12:53)
[2022-05-28] MEDS ORDERED: ONDANSETRON HCL INJ 2MG/ML 2ML 2 MG/ML VIAL ONE (12:53)
[2022-05-28] MEDS ORDERED: METOCLOPRAMIDE HCL 10 MG/2ML VIAL ONE (12:53)
[2022-05-28] MEDS ORDERED: POVIDONE IODINE 0.05% 0.05 % ML PO ONE (12:53)
[2022-05-28] MEDS ORDERED: FAMOTIDINE 20 MG/2 ML VIAL IV ONE (13:42)
[2022-05-28] MEDS: ENOXAPARIN SOD INJ 40 MG/0.4 ML SYR SC SCH (16:40)
[2022-05-28] MEDS: TRIAMTERENE/HCTZ 37.5-25 MG TAB PO SCH (16:56)
[2022-05-28] MEDS: SIMVASTATIN 20 MG TAB PO SCH (22:31)
[2022-05-28] MEDS: DULOXETINE HCL 30 MG DELAYED RELEASE PO SCH (22:31)
[2022-05-29] VITALS (8 sets, daily range): BP systolic 132–151; BP diastolic 64–95
[2022-05-29] MEDS: HYDROMORPHONE 1MG/1ML INJ IV PRN ×6 (00:15→20:19)
[2022-05-29] MEDS: SODIUM CHLORIDE 0.9% 1000ML 1,000 ML IV SCH ×3 (00:16→16:13)
[2022-05-29] MEDS: PROMETHAZINE 12.5MG/ NACL 0.9% 12.5 MG/50 ML BAG IV PRN (04:11)
[2022-05-29 06:44] LABS: BASOPHILS # (AUTO) 0.1 (0.0-0.1); EOSINOPHILS # (AUTO) 0.1 (0.0-0.4); EOSINOPHILS % 0.9 % (0.0-6.0); HEMATOCRIT 38.5 % (34.2-44.1); HEMOGLOBIN 12.7 g/dL (12.0-16.0); LYMPHOCYTES # (AUTO) 2.2 (1.0-3.2); LYMPHOCYTES % 23.6 % (18.0-39.1); MEAN CORPUSCULAR HEMOGLOBIN 30.7 pg (28-32); MONOCYTES # (AUTO) 1.1 (0.2-0.8); MONOCYTES % 11.5 % (4.4-11.3); NEUTROPHILS # (AUTO) 5.8 (2.1-6.9); NEUTROPHILS % 62.6 % (38.7-80.0); PLATELET COUNT 324 x10e3/uL (140-360); RED BLOOD COUNT 4.14 x10e6/uL (3.6-5.1); RED CELL DISTRIBUTION WIDTH 14.4 % (11.7-14.4)
[2022-05-29 07:08] LABS: ANION GAP 13.8 mmol/L (8-16); CREATININE, SERUM 0.97 mg/dL (0.57-1.11)
[2022-05-29 07:28] LABS: POTASSIUM 2.8 mmol/L (3.5-5.1)
[2022-05-29] MEDS: ONDANSETRON HCL INJ 2MG/ML 2ML 2 MG/ML VIAL IV PRN ×3 (08:21→20:18)
[2022-05-29] MEDS: POTASSIUM CHLORIDE 20MEQ/100ML 100 ML IV SCH ×4 (09:18→15:28)
[2022-05-29] MEDS: TRIAMTERENE/HCTZ 37.5-25 MG TAB PO SCH (10:04)
[2022-05-29] MEDS ORDERED: POTASSIUM BICARBONATE/CIT AC 20 MEQ TABLET.EFF PO ONE (11:00)
[2022-05-29] MEDS: ENOXAPARIN SOD INJ 40 MG/0.4 ML SYR SC SCH (16:42)
[2022-05-29] MEDS: DULOXETINE HCL 30 MG DELAYED RELEASE PO SCH (20:17)
[2022-05-29] MEDS: SIMVASTATIN 20 MG TAB PO SCH (20:18)
[2022-05-29] MEDS: MELATONIN 3 MG TAB PO SCH (20:18)
[2022-05-30] VITALS (10 sets, daily range): BP systolic 118–147; BP diastolic 58–86
[2022-05-30] MEDS: HYDROMORPHONE 1MG/1ML INJ IV PRN ×4 (00:34→16:10)
[2022-05-30] MEDS: SODIUM CHLORIDE 0.9% 1000ML 1,000 ML IV SCH (00:41)
[2022-05-30] MEDS ORDERED: METOCLOPRAMIDE HCL 10 MG/2ML VIAL IV ONE (01:30)
[2022-05-30] MEDS: ONDANSETRON HCL INJ 2MG/ML 2ML 2 MG/ML VIAL IV PRN ×2 (04:31→08:54)
[2022-05-30 06:25] LABS: ALBUMIN 2.9 g/dL (3.5-5.0); ANION GAP 13.4 mmol/L (8-16); CALCIUM 9.2 mg/dL (8.4-10.2); CREATININE, SERUM 0.77 mg/dL (0.57-1.11); POTASSIUM 3.4 mmol/L (3.5-5.1)
[2022-05-30] MEDS: METOCLOPRAMIDE HCL 10 MG/2ML VIAL IV SCH ×3 (06:29→15:57)
[2022-05-30] MEDS: TRIAMTERENE/HCTZ 37.5-25 MG TAB PO SCH (08:55)
[2022-05-30] MEDS ORDERED: POTASSIUM BICARBONATE/CIT AC 20 MEQ TABLET.EFF PO ONE (10:30)
[2022-05-30] MEDS: ENOXAPARIN SOD INJ 40 MG/0.4 ML SYR SC SCH (16:10)
[2022-05-30] MEDS: DULOXETINE HCL 30 MG DELAYED RELEASE PO SCH (19:54)
[2022-05-30] MEDS: MELATONIN 3 MG TAB PO SCH (19:54)
[2022-05-30] MEDS: HYDROCODONE/APAP 7.5MG-325MG 1 EA TAB PO PRN (19:54)
[2022-05-30] MEDS: SIMVASTATIN 20 MG TAB PO SCH (19:54)
[2022-05-31] MEDS: HYDROMORPHONE 1MG/1ML INJ IV PRN ×2 (00:32→08:48)
[2022-05-31] MEDS: METOCLOPRAMIDE HCL 10 MG/2ML VIAL IV SCH ×2 (00:32→05:55)
[2022-05-31 01:55] VITALS: BP 109/55
[2022-05-31 01:57] VITALS: BP 109/55
[2022-05-31] MEDS: HYDROCODONE/APAP 7.5MG-325MG 1 EA TAB PO PRN (04:21)
[2022-05-31 05:27] VITALS: BP 103/58
[2022-05-31 06:47] LABS: ANION GAP 13.1 mmol/L (8-16); CALCIUM 9.4 mg/dL (8.4-10.2); CREATININE, SERUM 0.73 mg/dL (0.57-1.11); POTASSIUM 3.1 mmol/L (3.5-5.1)
[2022-05-31 07:56] VITALS: BP 128/64
[2022-05-31] MEDS: TRIAMTERENE/HCTZ 37.5-25 MG TAB PO SCH (08:49)
[2022-05-31 08:50] VITALS: BP 128/64
[2022-05-31] MEDS ORDERED: REGLAN10 MG PO (11:19)
[2022-05-31] MEDS ORDERED: PROTONIX40 MG PO (11:20)
[2022-05-31 11:31] VITALS: BP 124/65
[2022-05-31] MEDS ORDERED: POTASSIUM CHLORIDE 10MEQ/100ML 100 ML IV SCH (12:00)
== END 2022-05-31 11:42 | disposition home or self-care (01) | DRG 382 ==
LOC: ER 11:32 → ERHOLD 16:18 → MED/SURG2 17:21 → OBSVTOIN 05-29 09:17
PROVIDERS: ADMIT Internal Medicine; ATTEND Internal Medicine
PROC: 0DB78ZX Excision of Stomach, Pylorus, Via Natural or Artificial Opening Endoscopic, Diagnostic (ICD-10-PCS; 2022-05-28)
PROC: 0D768ZZ Dilation of Stomach, Via Natural or Artificial Opening Endoscopic (ICD-10-PCS; principal; 2022-05-28 13:42)
DX: K22.10 Ulcer of esophagus without bleeding (principal); R11.2 Nausea with vomiting, unspecified; Z20.822 Contact with and (suspected) exposure to COVID-19; E86.0 Dehydration; E87.6 Hypokalemia; G89.4 Chronic pain syndrome; I10 Essential (primary) hypertension; E66.01 Morbid (severe) obesity due to excess calories; E78.5 Hyperlipidemia, unspecified; K29.70 Gastritis, unspecified, without bleeding; Z90.49 Acquired absence of other specified parts of digestive tract; Z96.659 Presence of unspecified artificial knee joint; Z87.891 Personal history of nicotine dependence; Z59.6 Low income; Z86.16 Personal history of COVID-19; Z98.84 Bariatric surgery status; Z68.39 Body mass index [BMI] 39.0-39.9, adult
CPT/HCPCS: 36415; 36569; 43239; 71045; 74176; 80048; 80053; 81001; 82150; 83690; 83735; 84484; 85025; 88304; 88305; 88312; 88342; 93005; 94799; 96360; 99252; 99284; G0378; J1170; J1650; J2001; J2270; J2405; J2550; J2765; J3010; J3480; J7030

== ENCOUNTER 2023-11-29 20:07 | Inpatient (IN) | payer MEDICARE ==
[~2023-11-29] VITALS: Ht 165.1 cm; Wt 107.0 kg
[~2023-11-29 20:07] MED LIST changes: -FENTANYL CITRATE/PF 100MCG/2 ML INJ ONE; +PROTONIX40 MG PO; +REGLAN10 MG PO
[2023-11-29] MEDS: ONDANSETRON HCL INJ 2MG/ML 2ML 2 MG/ML VIAL IV STA (20:27)
[2023-11-29] MEDS: SODIUM CHLORIDE 0.9% 1000ML 1,000 ML IV ONE (20:28)
[2023-11-29 20:37] LABS: BASOPHILS # (AUTO) 0.1 (0.0-0.1); EOSINOPHILS # (AUTO) 0.1 (0.0-0.4); EOSINOPHILS % 0.7 % (0.0-6.0); HEMATOCRIT 47.6 % (34.2-44.1); HEMOGLOBIN 15.4 g/dL (12.0-16.0); LYMPHOCYTES # (AUTO) 1.9 (1.0-3.2); LYMPHOCYTES % 23.1 % (18.0-39.1); MEAN CORPUSCULAR HEMOGLOBIN 31.2 pg (28-32); MEAN CORPUSCULAR HGB CONC 32.4 g/dL (31-35); MEAN CORPUSCULAR VOLUME 96.6 fL (81-99); MONOCYTES # (AUTO) 0.7 (0.2-0.8); MONOCYTES % 8.2 % (4.4-11.3); NEUTROPHILS # (AUTO) 5.4 (2.1-6.9); NEUTROPHILS % 66.8 % (38.7-80.0); PLATELET COUNT 408 x10e3/uL (140-360); RED BLOOD COUNT 4.93 x10e6/uL (3.6-5.1); RED CELL DISTRIBUTION WIDTH 14.5 % (11.7-14.4); WHITE BLOOD COUNT 8.14 x10e3/uL (4.8-10.8)
[2023-11-29 20:50] LABS: LIPASE 8 U/L (8-78)
[2023-11-29 20:52] LABS: ALBUMIN 3.7 g/dL (3.5-5.0); ALBUMIN/GLOBULIN RATIO 0.9 (0.8-2.0); ANION GAP 17.6 mmol/L (8-16); BILIRUBIN,TOTAL 0.7 mg/dL (0.2-1.2); CREATININE, SERUM 0.83 mg/dL (0.57-1.11); POTASSIUM 3.6 mmol/L (3.5-5.1); TOTAL PROTEIN 7.8 g/dL (6.5-8.1)
[2023-11-29 21:07] LABS: TROPONIN I < 0.05 ng/mL (0.0-0.40)
[2023-11-29 21:49] LABS: BILIRUBIN,URINE 3+ (NEGATIVE); CLARITY,URINE CLOUDY (CLEAR); COLOR,URINE YELLOW (YELLOW); GLUCOSE, URINE NEGATIVE (NEGATIVE); KETONES,URINE 1+ (NEGATIVE); LEUKOCYTE ESTERASE ,URINE NEGATIVE (NEGATIVE); NITRITE,URINE NEGATIVE (NEGATIVE); PH,URINE 6 (5 - 7); PROTEIN,URINE DIPSTICK NEGATIVE (NEGATIVE); URINE UROBILINOGEN 0.2 mg/dL (0.2 - 1)
[2023-11-29 22:11] LABS: BACTERIA,URINE MANY /HPF; EPITHELIAL CELLS,URINE MANY /LPF; TRANSITIONAL EPI CELLS,URINE FEW; WBC,URINE (MAN) 21-50 /HPF (0-5)
[2023-11-29 22:12] LABS: MUCUS,URINE FEW (RARE)
[2023-11-29] MEDS: HYDROCODONE/APAP 10MG-325MG TAB PO ONE (23:57)
[2023-11-30] VITALS (13 sets, daily range): BP systolic 144–171; BP diastolic 62–93; PULSE 81–95; RESP 16–20; TEMP 97.6–98.3; O2SAT 93–99
[2023-11-30] MEDS: SODIUM CHLORIDE 0.9% 1000ML 1,000 ML IV SCH (00:18)
[2023-11-30] MEDS: ONDANSETRON HCL INJ 2MG/ML 2ML 2 MG/ML VIAL IV PRN (00:21)
[2023-11-30] MEDS: Morphine 4mg INJECTION 4 MG/ML INJ IV PRN (03:45)
[2023-11-30] MEDS ORDERED: BUPROPION XL150 MG PO (03:51)
[2023-11-30] MEDS ORDERED: FUROSEMIDE40 MG PO (03:52)
[2023-11-30] MEDS ORDERED: LOSARTAN POTAS100 MG PO (03:53)
[2023-11-30 05:51] LABS: CREATINE KINASE 29 IU/L (29-168)
[2023-11-30 06:45] LABS: BASOPHILS # (AUTO) 0.1 (0.0-0.1); BASOPHILS % 0.9 % (0.0-1.0); EOSINOPHILS # (AUTO) 0.1 (0.0-0.4); EOSINOPHILS % 0.9 % (0.0-6.0); HEMATOCRIT 44.4 % (34.2-44.1); HEMOGLOBIN 14.2 g/dL (12.0-16.0); LYMPHOCYTES % 21.2 % (18.0-39.1); MEAN CORPUSCULAR HEMOGLOBIN 31.6 pg (28-32); MEAN CORPUSCULAR VOLUME 98.7 fL (81-99); MONOCYTES % 10.9 % (4.4-11.3); NEUTROPHILS # (AUTO) 6.1 (2.1-6.9); NEUTROPHILS % 65.7 % (38.7-80.0); PLATELET COUNT 347 x10e3/uL (140-360); RED CELL DISTRIBUTION WIDTH 14.6 % (11.7-14.4); WHITE BLOOD COUNT 9.24 x10e3/uL (4.8-10.8)
[2023-11-30 06:50] LABS: ALBUMIN 3.2 g/dL (3.5-5.0); ALBUMIN/GLOBULIN RATIO 0.9 (0.8-2.0); ANION GAP 14.6 mmol/L (8-16); BILIRUBIN,TOTAL 0.6 mg/dL (0.2-1.2); CALCIUM 10.6 mg/dL (8.4-10.2); CREATININE, SERUM 0.79 mg/dL (0.57-1.11); POTASSIUM 3.6 mmol/L (3.5-5.1); TOTAL PROTEIN 6.7 g/dL (6.5-8.1)
[2023-11-30] MEDS: HYDROMORPHONE 1MG/1ML INJ IV PRN (08:22)
[2023-11-30] MEDS: FUROSEMIDE 20 MG TAB PO SCH (12:18)
[2023-11-30] MEDS: LOSARTAN POTASSIUM 100 MG TAB PO SCH (12:18)
[2023-11-30 13:09] LABS: TROPONIN I < 0.030 ng/mL (0-0.300)
[2023-11-30] MEDS: GABAPENTIN 300 MG CAP PO SCH (14:38)
[2023-11-30] MEDS: METOCLOPRAMIDE HCL 10 MG TAB PO SCH (16:22)
[2023-11-30] MEDS: DULOXETINE HCL 30 MG DELAYED RELEASE PO SCH (20:48)
[2023-11-30] MEDS: SIMVASTATIN 20 MG TAB PO SCH (20:48)
[2023-11-30] MEDS: HYDROCODONE/APAP 10MG-325MG TAB PO PRN (20:49)
[2023-12-01] VITALS (10 sets, daily range): BP systolic 113–153; BP diastolic 49–88; PULSE 82–90; RESP 16–19; TEMP 97.4–98.2; O2SAT 90–94
[2023-12-01] MEDS: METOCLOPRAMIDE HCL 10 MG/2ML VIAL IV SCH (00:15)
[2023-12-01 06:06] LABS: BASOPHILS # (AUTO) 0.1 (0.0-0.1); BASOPHILS % 0.9 % (0.0-1.0); EOSINOPHILS # (AUTO) 0.2 (0.0-0.4); EOSINOPHILS % 2.5 % (0.0-6.0); HEMATOCRIT 45.3 % (34.2-44.1); HEMOGLOBIN 14.1 g/dL (12.0-16.0); LYMPHOCYTES # (AUTO) 2.4 (1.0-3.2); LYMPHOCYTES % 28.1 % (18.0-39.1); MEAN CORPUSCULAR HEMOGLOBIN 31.1 pg (28-32); MEAN CORPUSCULAR HGB CONC 31.1 g/dL (31-35); MEAN CORPUSCULAR VOLUME 99.8 fL (81-99); MONOCYTES # (AUTO) 0.8 (0.2-0.8); MONOCYTES % 9.2 % (4.4-11.3); NEUTROPHILS % 58.8 % (38.7-80.0); PLATELET COUNT 366 x10e3/uL (140-360); RED BLOOD COUNT 4.54 x10e6/uL (3.6-5.1); RED CELL DISTRIBUTION WIDTH 14.6 % (11.7-14.4); WHITE BLOOD COUNT 8.48 x10e3/uL (4.8-10.8)
[2023-12-01 06:24] LABS: ANION GAP 14.4 mmol/L (8-16); CALCIUM 9.8 mg/dL (8.4-10.2); CREATININE, SERUM 0.76 mg/dL (0.57-1.11)
[2023-12-01 06:27] LABS: POTASSIUM 3.4 mmol/L (3.5-5.1)
[2023-12-01 06:46] LABS: CREATINE KINASE 37 IU/L (29-168)
[2023-12-01] MEDS ORDERED: PANTOPRAZOLE SODIUM 40 MG SUSPDR.PKT PO SCH (07:30)
[2023-12-01] MEDS: BUPROPION HCL 150 MG TABCR PO SCH (08:07)
[2023-12-01 09:18] LABS: TROPONIN I < 0.05 ng/mL (0.0-0.40)
[2023-12-01] MEDS ORDERED: NON-FORMULARY MEDICATION (Naratriptan Hcl (Amerge) 2.5 MG) PO PRN (12:00)
[2023-12-01] MEDS: POTASSIUM BICARBONATE/CIT AC 20 MEQ TABLET.EFF PO ONE (12:55)
[2023-12-01] MEDS: FUROSEMIDE INJ 10 MG/ML 4 ML VIAL IV ONE (12:56)
[2023-12-01] MEDS: HEPARIN SOD (PORCINE) 5,000 UNIT/ML VIAL SC SCH (21:52)
[2023-12-01] MEDS: TRAZODONE HCL 50 MG TAB PO PRN (23:56)
[2023-12-02 06:00] VITALS: BP 127/65; PULSE 95; RESP 16; TEMP 98.4; O2SAT 94
[2023-12-02 06:03] LABS: ANION GAP 15.3 mmol/L (8-16); CALCIUM 10.2 mg/dL (8.4-10.2); CREATININE, SERUM 0.69 mg/dL (0.57-1.11)
[2023-12-02 06:04] LABS: POTASSIUM 3.3 mmol/L (3.5-5.1)
[2023-12-02 07:20] VITALS: BP 127/65; PULSE 95; RESP 16; TEMP 98.4; O2SAT 94
[2023-12-02 07:49] VITALS: BP 143/81; PULSE 93; RESP 17; TEMP 98.1; O2SAT 93
[2023-12-02] MEDS ORDERED: MUPIROCIN 2% OINT 22 GM TUBE TOP SCH (09:00)
[2023-12-02] MEDS ORDERED: CIPRO500 MG PO (10:59)
[2023-12-02 11:10] VITALS: BP 171/85; PULSE 93; RESP 18; TEMP 98; O2SAT 99
[2023-12-02] MEDS: CIPROFLOXACIN 500 MG TAB PO SCH (11:34)
== END 2023-12-02 13:40 | disposition home or self-care (01) | DRG 378 ==
LOC: ER 20:11 → ERHOLD 23:55 → MED/SURG2 11-30 01:08 → OBSVTOIN 12-01 12:46 → INTOOBSV 12-01 12:46
PROVIDERS: ADMIT Internal Medicine; ATTEND Internal Medicine
DX: K92.0 Hematemesis (principal); N39.0 Urinary tract infection, site not specified; B96.20 Unspecified Escherichia coli [E. coli] as the cause of diseases classified elsewhere; E83.52 Hypercalcemia; I10 Essential (primary) hypertension; E78.00 Pure hypercholesterolemia, unspecified; K21.9 Gastro-esophageal reflux disease without esophagitis; R10.9 Unspecified abdominal pain; M54.9 Dorsalgia, unspecified; F41.9 Anxiety disorder, unspecified; F39 Unspecified mood [affective] disorder; Z11.52 Encounter for screening for COVID-19; Z90.49 Acquired absence of other specified parts of digestive tract; Z88.1 Allergy status to other antibiotic agents; Z88.5 Allergy status to narcotic agent
CPT/HCPCS: 36415; 71045; 74174; 80048; 80053; 81001; 82550; 83690; 84484; 85025; 87086; 87186; 93005; 94799; 99252; 99284; G0378; J0696; J1170; J1644; J1940; J2270; J2405; J2470; J2765; J7030; U0002